=== PATIENT | male | born 1985 | race Caucasian/White ===

== ENCOUNTER 2022-03-02 17:01 | Inpatient (IN) | payer OTHER, SELFPAY ==
--- NOTE | ~2022-03-02 | CT_ITS ---
EXAMINATION: CT ABDOMEN AND PELVIS WITHOUT CONTRAST CLINICAL INFORMATION: Abdominal pain. Leukocytosis. COMPARISON: None TECHNIQUE: Multidetector volumetric imaging was performed from the superior aspect of the liver through the pubic symphysis. Sagittal and coronal reformatted images were obtained on the technologist's workstation. This CT examination was performed using dose optimization techniques as appropriate, variously including the following: *Automated exposure control *Adjustment of mA and/or kV according to patient size (this includes techniques or standardized protocols for targeted exams where dose is matched to indication/reason for exam; i.e. extremities or head) *Use of iterative reconstruction technique DLP: 737 mGy-cm FINDINGS: LUNG BASES: The visualized lung bases are unremarkable. LIVER, GALLBLADDER, AND BILIARY TREE: The liver is normal in size, shape, and attenuation. No focal hepatic lesion or biliary ductal dilatation is present. The gallbladder is unremarkable with no evidence of radiopaque gallstones, gallbladder wall thickening, or obvious pericholecystic inflammatory changes. PANCREAS: Unremarkable. SPLEEN: Unremarkable. ADRENAL GLANDS: Unremarkable. KIDNEYS AND URETERS: The kidneys are normal in size, shape, and attenuation. No hydronephrosis, hydroureter, or calculi seen. No perinephric stranding. BLADDER: Unremarkable. GASTROINTESTINAL TRACT: There is numerous diverticula throughout the colon. There is segment of bowel wall thickening and surrounding edema involving the proximal to mid sigmoid colon consistent with diverticulitis. Small volume of extraluminal air mesentery in this area consistent with localized perforation. ABDOMINAL WALL: No significant hernia is appreciated. LYMPH NODES: Normal. VASCULAR: Unremarkable. PELVIC VISCERA: Unremarkable. OSSEOUS STRUCTURES: Unremarkable. CT/CT abdomen pelvis wo IV con IMPRESSION: Diverticulitis of the sigmoid colon. Localized perforation. Fleischner guidelines were followed. This critical result was discussed with Dr Jackman on 03/02/2022, 10:40 PM and it was ascertained that the content and urgency of the report was understood at the time of direct communication.
[2022-03-02 17:57] VITALS: BP 135/92; PULSE 112; RESP 14; TEMP 36.6; O2SAT 96; BMI 30.4
[2022-03-02 18:19] LABS: MANUAL DIFF FLAG NO
[2022-03-02 18:21] LABS: Basophils Percent Auto 0.3 % (0-2); Hemoglobin 15.6 g/dl (14.0-18.0); Imm Gran Pct Auto 0.4 % (0.0-0.4); Mean Corpuscular HGB Conc 34.7 g/dl (31.0-36.0); Mean Corpuscular Hemoglobin 30.5 pg (27.0-33.0); Mean Corpuscular Volume 88.1 fL (80.0-98.0); PLT CLUMP 1; Red Blood Count 5.11 X10*6/uL (4.60-5.80); Red Cell Distribution Width 11.9 % (11.0-16.0); SCAN SMEAR FLAG 1; WBC ABN SCTR 1
[2022-03-02 18:23] LABS: Basophils Absolute Auto 0.1 X10*3/uL (0.0-0.2); Imm Gran Abs Auto 0.08 X10*3/uL (0.00-0.03); Lymphocytes Absolute Auto 1.3 X10*3/uL (1.2-4.9); Lymphocytes Percent Auto 6.2 % (20-40); Mean Platelet Volume 11.1 fL (9.4-12.4); Monocytes Absolute Auto 1.2 X10*3/uL (0.1-1.2); Monocytes Percent Auto 5.8 % (2-11); Neutrophils Absolute Auto 17.5 x10*3/uL (2.0-8.3); Neutrophils Percent Auto 87.3 % (45-73)
[2022-03-02 18:33] LABS: Anion Gap 18 (12-20); Blood Urea Nitrogen 7 mg/dL (9-16); Calcium 9.4 mg/dL (8.4-10.2); Carbon Dioxide 22 mmol/L (22-29); Chloride 100 mmol/L (96-108); Creatinine Clr Calc Pharmacy 109.5; Estimated Glomerular Filt Rate > 60; Glucose Random 129 mg/dL (60-115); Potassium 4.2 mmol/L (3.3-5.1); Sodium 136 mmol/L (135-145)
[2022-03-02 18:34] LABS: COVID-19 Test Negative (Negative); IDNOW Serial# 16C4AD1C
[2022-03-02 18:40] LABS: WBC ABN SCTR FOR CBC 1
[2022-03-02 18:41] LABS: Platelet Count 130 X10*3/uL (160-400); White Blood Count 20.1 X10*3/uL (4.8-10.8)
[2022-03-02 18:42] LABS: Appearance Urine Clear; Color Urine Yellow; Glucose Urine UA Negative (Negative); Leukocyte Esterase Urine Negative (Negative); Nitrite Urine Negative (Negative); Urine Blood Negative (Negative); Urine Ketones Negative (Negative); Urine Protein Negative (Neg-Trace)
[2022-03-02 22:06] LABS: Lipase 17 U/L (8-78)
--- NOTE | 2022-03-02 22:49 | ED_ITS ---
HPI - Abdominal Pain General Chief Complaint: Abdominal Pain Stated Complaint: lower abd pain Time Seen by Provider: 03/02/22 22:15 Source: patient Mode of arrival: ambulatory History of Present Illness HPI narrative: 36-year-old male without significant past medical history presents with lower abdominal pressure and pain that started yesterday at about noon and has not been associated with any nausea or vomiting but patient states he has had some difficulty with defecation and has had some fevers and chills but denies any urinary symptoms. Related Data Home Medications Medication Instructions Recorded Confirmed coenzyme Q10 75 mg capsule (Ultra 75 mg PO DAILY 03/02/22 CoQ10) omega 1-pcc-rpe-fish oil 100 cap PO 03/02/22 mg-160 mg-1,000 mg capsule (Fish Oil) Allergies Allergy/AdvReac Type Severity Reaction Status Date / Time No Known Allergies Allergy Verified 03/02/22 15:51 Review of Systems Review of Systems Pertinent positives and negatives as stated in HPI. And 10 point review of systems is otherwise negative. PMFSH Past Medical History Source: nursing notes reviewed Social History Social History Advance Directives: No Physical Exam ED Vital Signs: Vital Signs - 24 hr 03/02/22 17:57 Temperature 98 F Pulse Rate 112 H Respiratory Rate 14 Blood Pressure 135/92 H Pulse Oximetry 96 Oxygen Delivery Method Room Air BMI result Body Mass Index 30.4 VITAL SIGNS: Reviewed. GENERAL: Well developed, well nourished, in no acute distress. HEAD: Normocephalic/atraumatic EYES: PERRLA, EOMI EARS: Ext canals without abnormality OROPHARYNX: no oral lesions noted, posterior pharynx clear LUNGS: Normal breath sounds. No adventitious sounds or accessory muscle use. SpO2<96> CARDIOVASCULAR: Regular rate and rhythm without noted murmurs ABDOMEN: Soft, non-tender, non-distended with bowel sounds. MUSCULOSKELETAL: No tenderness, deformities, or effusions noted on gross inspection. EXTREMITIES: No cyanosis, clubbing or edema. SKIN: Inspection of the skin reveals no rashes NEUROLOGIC: Alert and oriented x 4. Strength and sensation to light touch were grossly intact x 4. Course Course Course Narrative: 2214: 36-year-old male with history and clinical presentation after review of investigations consistent with acute diverticulitis with micro perforation and sepsis. Patient receiving antibiotics and IV fluids as well as pain medication. Discussed the case with the surgeon who accepts admission. Reevaluation(s) Reevaluation #1: [facility] called to inform that patient has diverticulitis with microperforation and no noted abscess or air within abdomen. Time: 22:47 MDM - Abdominal Pain Lab Data Result diagrams: 03/02/22 18:13 03/02/22 18:13 Labs: Lab Results 03/02/22 03/02/22 03/02/22 Range/Units 18:13 18:13 18:13 WBC 20.1 H (4.8-10.8) X10*3/uL RBC 5.11 (4.60-5.80) X10*6/uL Hgb 15.6 (14.0-18.0) g/dl Hct 45.0 (42.0-52.0) % MCV 88.1 (80.0-98.0) fL MCH 30.5 (27.0-33.0) pg MCHC 34.7 (31.0-36.0) g/dl RDW 11.9 (11.0-16.0) % Plt Count 130 L (160-400) X10*3/uL MPV 11.1 (9.4-12.4) fL Immature Gran % (Auto) 0.4 (0.0-0.4) % Neut % (Auto) 87.3 H (45-73) % Lymph % (Auto) 6.2 L (20-40) % [place] % (Auto) 5.8 (2-11) % Eos % (Auto) 0.0 (0-4) % Baso % (Auto) 0.3 (0-2) % Lymph # (Auto) 1.3 (1.2-4.9) X10*3/uL [place] # (Auto) 1.2 (0.1-1.2) X10*3/uL Eos # (Auto) 0.0 (0.0-0.4) X10*3/uL Baso # (Auto) 0.1 (0.0-0.2) X10*3/uL Abs Immat Gran (auto) 0.08 H (0.00-0.03) X10*3/uL Absolute Neuts (auto) 17.5 H (2.0-8.3) x10*3/uL Absolute Nucleated RBC 0.000 (0.0-0.012) X10*3/uL Nucleated RBC % (auto) 0.0 (0.0-0.2) /100WBC Sodium 136 (135-145) mmol/L Potassium 4.2 (3.3-5.1) mmol/L Chloride 100 (96-108) mmol/L Carbon Dioxide 22 (22-29) mmol/L Anion Gap 18 (12-20) BUN 7 L (9-16) mg/dL Creatinine 1.02 (0.5-1.4) mg/dL Estim Creat Clear Calc 109.5 Estimated GFR > 60 Random Glucose 129 H (60-115) mg/dL Calcium 9.4 (8.4-10.2) mg/dL Lipase 17 (8-78) U/L Urine Color Urine Appearance Urine pH (5.0-9.0) Ur Specific [place] (1.005-1.025) Urine Protein (Neg-Trace) mg/dL Urine Glucose (UA) (Negative) mg/dL Urine Ketones (Negative) mg/dL Urine Blood (Negative) Urine Nitrite (Negative) Ur Leukocyte Esterase (Negative) COVID-19 ([facility]) Negative (Negative) COVID-19 Clin Com See Note 03/02/22 Range/Units 18:13 WBC (4.8-10.8) X10*3/uL RBC (4.60-5.80) X10*6/uL Hgb (14.0-18.0) g/dl Hct (42.0-52.0) % MCV (80.0-98.0) fL MCH (27.0-33.0) pg MCHC (31.0-36.0) g/dl RDW (11.0-16.0) % Plt Count (160-400) X10*3/uL MPV (9.4-12.4) fL Immature Gran % (Auto) (0.0-0.4) % Neut % (Auto) (45-73) % Lymph % (Auto) (20-40) % [place] % (Auto) (2-11) % Eos % (Auto) (0-4) % Baso % (Auto) (0-2) % Lymph # (Auto) (1.2-4.9) X10*3/uL [place] # (Auto) (0.1-1.2) X10*3/uL Eos # (Auto) (0.0-0.4) X10*3/uL Baso # (Auto) (0.0-0.2) X10*3/uL Abs Immat Gran (auto) (0.00-0.03) X10*3/uL Absolute Neuts (auto) (2.0-8.3) x10*3/uL Absolute Nucleated RBC (0.0-0.012) X10*3/uL Nucleated RBC % (auto) (0.0-0.2) /100WBC Sodium (135-145) mmol/L Potassium (3.3-5.1) mmol/L Chloride (96-108) mmol/L Carbon Dioxide (22-29) mmol/L Anion Gap (12-20) BUN (9-16) mg/dL Creatinine (0.5-1.4) mg/dL Estim Creat Clear Calc Estimated GFR Random Glucose (60-115) mg/dL Calcium (8.4-10.2) mg/dL Lipase (8-78) U/L Urine Color Yellow Urine Appearance Clear Urine pH 6.0 (5.0-9.0) Ur Specific [place] 1.010 (1.005-1.025) Urine Protein Negative (Neg-Trace) mg/dL Urine Glucose (UA) Negative (Negative) mg/dL Urine Ketones Negative (Negative) mg/dL Urine Blood Negative (Negative) Urine Nitrite Negative (Negative) Ur Leukocyte Esterase Negative (Negative) COVID-19 ([facility]) (Negative) COVID-19 Clin Com Critical Care Time Critical Care Time Critical Care Time: Yes Total Critical Care Time: 30 Attestation: I personally attest to this time spent taking care of the patient. Discharge Plan Discharge Clinical Impression: Sepsis, Diverticulitis Patient Disposition: Admitted As Inpatient
[2022-03-02] MEDS: 0.9 % Sodium Chloride 1,000 ML 999 ML IV (23:15)
[2022-03-02] MEDS: Piperacillin Sodium/Tazobactam 3.375 GM in 0.9 % Sodium Chloride 50 ML IV (23:15)
[2022-03-02 23:22] LABS: Lactic Acid 1.1 mmol/L (0.5-2.0)
[2022-03-02] MEDS: HYDROmorphone HCl 0.5 MG/0.5 ML SYRINGE IVPUSH (23:24)
[2022-03-02 23:30] VITALS: BP 114/71; PULSE 102; RESP 14; TEMP 37.8; O2SAT 95
[2022-03-02] MEDS: Acetaminophen 325 MG TABLET 975 MG PO (23:43)
[2022-03-03] VITALS (9 sets, daily range): BP systolic 105–130; BP diastolic 70–82; PULSE 90–98; RESP 16–20; TEMP 36.6–38.2; O2SAT 95–99
[2022-03-03] MEDS: 0.9 % Sodium Chloride 1,000 ML 125 ML IVCONT ×3 (00:32→16:54)
[2022-03-03 06:30] LABS: MANUAL DIFF FLAG NO
[2022-03-03 06:32] LABS: Basophils Absolute Auto 0.1 X10*3/uL (0.0-0.2); Basophils Percent Auto 0.3 % (0-2); Eosinophils Absolute Auto 0.1 X10*3/uL (0.0-0.4); Eosinophils Percent Auto 0.4 % (0-4); Hematocrit 40.1 % (42.0-52.0); Hemoglobin 13.7 g/dl (14.0-18.0); Imm Gran Abs Auto 0.09 X10*3/uL (0.00-0.03); Imm Gran Pct Auto 0.5 % (0.0-0.4); Lymphocytes Absolute Auto 1.9 X10*3/uL (1.2-4.9); Lymphocytes Percent Auto 11.6 % (20-40); Mean Corpuscular HGB Conc 34.2 g/dl (31.0-36.0); Mean Corpuscular Hemoglobin 31.1 pg (27.0-33.0); Mean Corpuscular Volume 90.9 fL (80.0-98.0); Mean Platelet Volume 10.5 fL (9.4-12.4); Monocytes Absolute Auto 1.1 X10*3/uL (0.1-1.2); Monocytes Percent Auto 6.8 % (2-11); Neutrophils Absolute Auto 13.2 x10*3/uL (2.0-8.3); Neutrophils Percent Auto 80.4 % (45-73); Platelet Count 184 X10*3/uL (160-400); Red Blood Count 4.41 X10*6/uL (4.60-5.80); Red Cell Distribution Width 12.1 % (11.0-16.0); White Blood Count 16.4 X10*3/uL (4.8-10.8)
[2022-03-03] MEDS: Piperacillin Sodium/Tazobactam 3.375 GM in 0.9 % Sodium Chloride 50 ML IV ×3 (06:32→22:35)
[2022-03-03] MEDS: HYDROmorphone HCl 1 MG/ML SYRINGE 0.5 MG IVPUSH ×2 (06:33→17:49)
[2022-03-03 06:49] LABS: Anion Gap 16 (12-20); Blood Urea Nitrogen 7 mg/dL (9-16); Calcium 8.4 mg/dL (8.4-10.2); Carbon Dioxide 25 mmol/L (22-29); Chloride 102 mmol/L (96-108); Creatinine Clr Calc Pharmacy 132.9; Estimated Glomerular Filt Rate > 60; Glucose Fasting 111 mg/dL (60-99); Potassium 4.6 mmol/L (3.3-5.1); Sodium 138 mmol/L (135-145)
--- NOTE | 2022-03-03 07:58 | PHA.MEDREC ---
Pharmacy Consult ? Medication Reconciliation Pharmacy has completed the medication reconciliation.Spoke to patient and confirmed dosing on otc meds. No prescription medications taken at home.
--- NOTE | 2022-03-03 08:22 | P.HPGS_ITS ---
History of Present Illness History of Present Illness Date of Service: 03/03/22 Chief complaint: diverticulitis Narrative: Salomon Gunderson is a 36 year old male Presenting with complaints of abdominal pain in the lower abdomen. The pain began 2 days ago suddenly as a dull ache in the lower abdomen. The pain is persisted in this location and comes in waves, 6/10 at its peak. He reports fever and chills but denies nausea, vomiting . He does have constipation which began Wednesday. This is unusual for him. Denies a previous history of similar symptoms. Workup in the emergency department revealed an elevated WBC. CT abdomen and pelvis reveals an area of diverticulitis involving the sigmoid colon with collection of air within the mesentery. Findings are considered just of of a perforated sigmoid diverticulitis. He has never undergone colonoscopy. Review of Systems Review of Systems: Yes all other systems are reviewed and are negative Constitutional: Constitutional: Reports chills and Reports fever(s) Gastrointestinal: Gastrointestinal: Reports abdominal pain, Reports constipation and Reports GI cramping PMFSH Social History Social History Patient Tobacco Use Status: Never used Tobacco Use of substances other than those prescribed or required for medical reasons: No Advance Directives: No Meds Allergies Allergy/AdvReac Type Severity Reaction Status Date / Time No Known Allergies Allergy Verified 03/02/22 15:51 Active Medications: Current Medications Famotidine (Famotidine/Pf 20 Mg/2 Ml Vial) 20 mg IVPUSH BID MEGHANN Hydromorphone HCl (Hydromorphone Hcl 1 Mg/Ml Syringe) 0.5 mg IVPUSH Q4H PRN; Protocol PRN Reason: Pain, Moderate (Pain Scale 4-6 Last Admin: 03/03/22 06:33 Dose: 0.5 mg Sodium Chloride (Ns) 1,000 mls @ 125 mls/hr IVCONT .Q8H [facility] Last Admin: 03/03/22 00:32 Dose: 125 mls/hr Piperacillin Sod/Tazobactam (Sod 3.375 gm/ Sodium Chloride) 50 mls @ 100 mls/hr IV Q8H [facility] Last Infusion: 03/03/22 07:32 Dose: Infused Home Medications Medication Instructions Recorded Confirmed Last Taken Type coenzyme Q10 75 mg capsule (Ultra 75 mg PO DAILY 03/02/22 03/03/22 03/03/22 History CoQ10) omega 6-dle-fnu-fish oil 100 1 cap PO DAILY 03/02/22 03/03/22 03/01/22 History mg-160 mg-1,000 mg capsule (Fish Oil) Physical Exam Vital Signs: Vital Signs: Last Vital Signs Temp 99.6 F 03/03/22 07:30 Pulse 98 03/03/22 07:30 Resp 20 03/03/22 07:30 BP 130/78 03/03/22 07:30 Pulse Ox 99 03/03/22 07:30 O2 Del Method 03/03/22 07:30 BMI result Body Mass Index 30.4 Const: General: cooperative and no acute distress Nutritional Appearance: well nourished Orientation/consciousness: patient oriented x3 Limitations: no limitations HEENT: Head: Yes normocephalic and Yes atraumatic Ears: hearing grossly normal bilaterally Resp: Effort & Inspection: normal respiratory effort, no audible wheezes, no cough and no respiratory distress Cardio: Jugular venous distension: no JVD GI: Inspection: Yes normal to inspection Palpation (GI): Soft to palpation, Tenderness to palpation present (GI) in the LLQ and in the RLQ; with no rebound tenderness, no guarding and not rigid Percussion: Yes normal to percussion Auscultation: normal bowel sounds Rectal Exam - Male: Yes deferred Skin: Other: Warm, dry, no rash Neuro: General: patient oriented x3 Extrem: General: Yes no clubbing, cyanosis or edema Results Results Labs: Short CBC 03/02/22 03/03/22 Range/Units 18:13 06:02 WBC 20.1 H 16.4 H (4.8-10.8) X10*3/uL Hgb 15.6 13.7 L (14.0-18.0) g/dl Hct 45.0 40.1 L (42.0-52.0) % Plt Count 130 L 184 D (160-400) X10*3/uL BMP 03/02/22 03/03/22 18:13 06:02 Sodium 136 138 Potassium 4.2 4.6 Chloride 100 102 Carbon Dioxide 22 25 BUN 7 L 7 L Creatinine 1.02 0.84 Calcium 9.4 8.4 D Urine 10/24/22 Range/Units 18:13 Urine Color Yellow Urine Appearance Clear Urine pH 6.0 (5.0-9.0) Ur Specific [place] 1.010 (1.005-1.025) Urine Protein Negative (Neg-Trace) mg/dL Urine Glucose (UA) Negative (Negative) mg/dL Assessment and Plan (1) Abdominal pain: Status: Acute (2) Diverticulitis: Status: Acute (3) Sepsis: Status: Acute Plan 36-year-old male patient with a complained of abdominal pain in the lower abdomen of 2 days duration. Patient was found to have elevated WBC and evidence of sigmoid diverticulitis with a perforation and contained collection of air without abscess. Examination reveals some mild tenderness in the right lower quadrant and left lower quadrant without rebound, guarding or rigidity. Recommend continuing IV antibiotics and bowel rest. Will recheck CBC in a.m. will advance diet if CBC and abdominal pain improved. Patient will need col onoscopy once the current episode resolves. Patient expressed understanding and agrees with the plan. Quality Stroke Does the patient have a stroke diagnosis?: No VTE Prior VTE?: No VTE Risk Level:: Surgical - moderate VTE Device Contraindication: N/A - Device Ordered VTE Drug Contraindication: N/A - Med Ordered Procedures Date of Service Date of Service: 03/03/22
[2022-03-03] MEDS: Famotidine/PF 20 MG/2 ML VIAL IVPUSH ×2 (08:37→22:34)
[2022-03-03] MEDS: oxyCODONE HCl Immed Release 5 MG TABLET PO ×2 (10:49→22:34)
--- NOTE | 2022-03-03 16:42 | PC.NURSE ---
assumed care of pt, pt reporting feeling febrile, tech to obtain vitals.
[2022-03-03] MEDS: Acetaminophen 325 MG TABLET 650 MG PO (16:57)
--- NOTE | 2022-03-03 16:59 | PC.NURSE ---
pt a&ox3, vss, low fever, medicated per provider order, NS started at 125ml/hr. pt reporting 4/10 pain. pt inquiring about NPO status, provider notified.
--- NOTE | 2022-03-03 17:51 | PC.NURSE ---
pt medicated w PRN Dilaudid, reporting 4/10 abd pain.
--- NOTE | 2022-03-03 18:30 | PC.NURSE ---
pt requesting ice chips, pt to remain NPO until 03/04 per provider.
--- NOTE | 2022-03-03 20:30 | PC.NURSE ---
attempted to call in report to S3, nurse to call back.
--- NOTE | 2022-03-03 21:22 | PC.NURSE ---
RN-RN report given to S3.
[2022-03-03] MEDS: Zolpidem Tartrate 5 MG TABLET PO (22:34)
[2022-03-04] VITALS: BP 118/67; PULSE 105; RESP 18; TEMP 37.2; O2SAT 97
[2022-03-04] MEDS: 0.9 % Sodium Chloride 1,000 ML 125 ML IVCONT ×2 (01:07→11:09)
[2022-03-04 03:05] VITALS: BP 115/61; PULSE 92; RESP 16; TEMP 37.3; O2SAT 97
[2022-03-04] MEDS: oxyCODONE HCl Immed Release 5 MG TABLET PO ×2 (05:48→22:08)
[2022-03-04] MEDS: Piperacillin Sodium/Tazobactam 3.375 GM in 0.9 % Sodium Chloride 50 ML IV ×3 (05:49→22:04)
[2022-03-04 05:58] LABS: MANUAL DIFF FLAG NO
[2022-03-04 06:05] LABS: Basophils Percent Auto 0.3 % (0-2); Eosinophils Absolute Auto 0.1 X10*3/uL (0.0-0.4); Hematocrit 37.2 % (42.0-52.0); Hemoglobin 12.5 g/dl (14.0-18.0); Imm Gran Abs Auto 0.07 X10*3/uL (0.00-0.03); Imm Gran Pct Auto 0.5 % (0.0-0.4); Lymphocytes Absolute Auto 1.3 X10*3/uL (1.2-4.9); Lymphocytes Percent Auto 9.6 % (20-40); Mean Corpuscular HGB Conc 33.6 g/dl (31.0-36.0); Mean Corpuscular Volume 89.4 fL (80.0-98.0); Mean Platelet Volume 10.4 fL (9.4-12.4); Monocytes Absolute Auto 0.9 X10*3/uL (0.1-1.2); Monocytes Percent Auto 6.7 % (2-11); Neutrophils Percent Auto 81.9 % (45-73); Platelet Count 175 X10*3/uL (160-400); Red Blood Count 4.16 X10*6/uL (4.60-5.80); Red Cell Distribution Width 11.9 % (11.0-16.0); White Blood Count 13.5 X10*3/uL (4.8-10.8)
--- NOTE | 2022-03-04 07:21 | MHC.CM.PN ---
PATIENT CURRENTLY ASLEEP. CASE MANAGEMENT NAME AND ANTICIAPTED PLAN WRITTEN ON WHITE BOARD. CASE MANAGEMENT TO RETURN. PER REVIEW OF NOTES, PATIENT APPEARS TO BE INDEPENDENT WITH ADLS. NO SERVICES ANTICIPATED. CASE MANAGEMENT TO RETURN
[2022-03-04 08:00] VITALS: BP 107/59; PULSE 93; RESP 18; TEMP 37.1; O2SAT 96
--- NOTE | 2022-03-04 08:28 | MHC.CM.PN ---
PATIENT IS FULLY INDEPENDENT. CAR IS IN LOT. COVID VAX X 2 ([employer] AND [employer]ER) NO DME OR SERVICES IN HOME. PLAN IS HOME - SELF CARE AT TIME OF DC. IS HCP AND A COPY IS REQUESTED TO BE BROUGHT IN
--- NOTE | 2022-03-04 10:01 | P.PNGS_ITS ---
Subjective Subjective Date of Service: 03/04/22 <Mary Anne Jacobsen PA-C - Last Filed: 03/04/22 10:07> 03/04/22 <Quinton Silva MD - Last Filed: 03/04/22 13:19> Interval history: Feels much better overall. Still has some pain with movement but significantly improved. Hungry and wants to eat. Passing flatus, no BM yet. <Mary Anne Jacobsen PA-C - Last Filed: 03/04/22 10:07> Physical Exam Vital Signs: Vital Signs: Last Vital Signs Temp 98.8 F 03/04/22 08:00 Pulse 93 03/04/22 08:00 Resp 18 03/04/22 08:00 BP 107/59 L 03/04/22 08:00 Pulse Ox 96 03/04/22 08:00 O2 Del Method 03/04/22 08:00 BMI result Body Mass Index 30.4 <Mary Anne Jacobsen PA-C - Last Filed: 03/04/22 10:07> Const: General: comfortable, no acute distress and alert <Mary Anne harrison PA-C - Last Filed: 03/04/22 10:07> Orientation/consciousness: patient oriented x3 <GIANFRANCO Max Last Filed: 03/04/22 10:07> Resp: Effort & Inspection: normal respiratory effort <Mary Anne Jacobsen PA-C - Last Filed: 03/04/22 10:07> GI: Inspection: No distended <Mary Anne Jacobsen PA-C - Last Filed: 03/04/22 10:07> Palpation (GI): Soft to palpation, Tenderness to palpation present (GI) in the LLQ (pinpoint tenderness and rebound), no guarding and not rigid <GIANFRANCO Max Last Filed: 03/04/22 10:07> Percussion: Yes normal to percussion <GIANFRANCO Max Last Filed: 03/04/22 10:07> Skin: General skin exam: no rashes or lesions noted <GIANFRANCO Max Last Filed: 03/04/22 10:07> Neuro: General: patient oriented x3 <Mary Anne Jacobsen PA-C - Last Filed: 03/04/22 10:07> Extrem: General: Yes no clubbing, cyanosis or edema <Mary Anne Jacobsen PA-C - Last Filed: 03/04/22 10:07> Objective Data Active Medications Acetaminophen (Acetaminophen 325 Mg Tablet) 650 mg PO QID PRN PRN Reason: headache, temp > 101 Last Admin: 03/03/22 16:57 Dose: 650 mg Documented By: MICHEL Famotidine (Famotidine/Pf 20 Mg/2 Ml Vial) 20 mg IVPUSH BID [facility] Last Admin: 03/03/22 22:34 Dose: 20 mg Documented By: SAPNA Hydromorphone HCl (Hydromorphone Hcl 1 Mg/Ml Syringe) 0.5 mg IVPUSH Q4H PRN; Protocol PRN Reason: Pain, Moderate (Pain Scale 4-6 Last Admin: 03/03/22 17:49 Dose: 0.5 mg Documented By: MICHEL Sodium Chloride (Ns) 1,000 mls @ 60 mls/hr IVCONT .[id number] [facility] Last Admin: 03/04/22 01:07 Dose: 125 mls/hr Documented By: SAPNA Piperacillin Sod/Tazobactam (Sod 3.375 gm/ Sodium Chloride) 50 mls @ 100 mls/hr IV Q8H [facility] Last Infusion: 03/04/22 06:33 Dose: 100 mls/hr Documented By: ÁNGELA Ondansetron HCl (Ondansetron Hcl 4 Mg/2 Ml Vial) 4 mg IVPUSH QID PRN PRN Reason: Nausea Oxycodone HCl (Oxycodone Hcl Immed Release 5 Mg Tablet) 5 mg PO Q4H PRN PRN Reason: Pain, Moderate (Pain Scale 4-6 Last Admin: 03/04/22 05:48 Dose: 5 mg Documented By: ÁNGELA Zolpidem Tartrate (Zolpidem Tartrate 5 Mg Tablet) 5 mg PO BEDTIME PRN PRN Reason: Insomnia Last Admin: 03/03/22 22:34 Dose: 5 mg Documented By: SAPNA <GIANFRANCO Max Last Filed: 03/04/22 10:07> Labs CBC & Chem 7: : 03/04/22 05:17 03/03/22 06:02 <Mary Anne Jacobsen PA-C - Last Filed: 03/04/22 10:07> Labs: Laboratory Results - last 24 hr 03/04/22 05:17 MCV 89.4 MCH 30.0 MCHC 33.6 RDW 11.9 Plt Count 175 MPV 10.4 Immature Gran % (Auto) 0.5 H Neut % (Auto) 81.9 H Lymph % (Auto) 9.6 L [place] % (Auto) 6.7 Eos % (Auto) 1.0 Baso % (Auto) 0.3 Lymph # (Auto) 1.3 [place] # (Auto) 0.9 Eos # (Auto) 0.1 Baso # (Auto) 0.0 Abs Immat Gran (auto) 0.07 H Absolute Neuts (auto) 11.0 H Absolute Nucleated RBC 0.000 Nucleated RBC % (auto) 0.0 <Mary Anne Jacobsen PA-C - Last Filed: 03/04/22 10:07> Microbiology Microbiology Results: Microbiology 03/02/22 23:14 Blood Culture - Preliminary Blood - Venous No growth after 24 hours. 03/02/22 23:05 Blood Culture - Preliminary Blood - Venous No growth after 24 hours. <Mary Anne Jacobsen PA-C - Last Filed: 03/04/22 10:07> Procedures Date of Service Date of Service: 03/04/22 <Mary Anne Jacobsen PA-C - Last Filed: 03/04/22 10:07> Progress Note: A&P Assessment and plan (1) Diverticulitis: Status: Acute <Mary Anne Jacobsen PA-C - Last Filed: 03/04/22 10:07> (2) Sepsis: Status: Acute <GIANFRANCO Max Last Filed: 03/04/22 10:07> Assessment and Plan: 36 year old male admitted with sepsis, perforated diverticulitis being managed conservatively with IV abx and bowel rest. He is improved symptomatically today and WBC has decreased. Abd remains very benign. Will advance to clear liquids and then further as tolerated. Cont IV zosyn. Likely home in the next 1-2 days on PO abx if continues to improve and solid diet is tolerated. <Mary Anne Jacobsen PA-C - Last Filed: 03/04/22 10:07> 36 year old male admitted with sepsis, perforated diverticulitis being ma naged conservatively with IV abx and bowel rest. He is improved symptomatically today and WBC has decreased. Abd remains very benign. Will advance to clear liquids and then further as tolerated. Cont IV zosyn. Likely home in the next 1-2 days on PO abx if continues to improve and solid diet is tolerated. Patient feels much improved with decreased abdominal pain, felt mainly in the lower abdomen. He is passing flatus but denies any bowel movement. Abdomen is soft and nontender, nondistended no rebound or guarding. WBC improved today. Agree with the above assessment and plan. Continue IV antibiotics slowly advance diet as tolerated. Transition to oral antibiotics once diet is tolera iftikhar. <Quinton Silav MD - Last Filed: 03/04/22 13:19> Time Spent With Patient Time: Total time spent is greater than 50% in coordination of care (as documented) at patient's floor/unit and/or counseling patient: <Mary Anne Jacobsen PA-C - Last Filed: 03/04/22 10:07> Quality Stroke Does the patient have a stroke diagnosis?: No <Mary Anne Jacobsen PA-C - Last Filed: 03/04/22 10:07> VTE Prior VTE?: No <Mary Anne Jacobsen PA-C - Last Filed: 03/04/22 10:07> VTE Risk Level:: Surgical - moderate <Mary Anne Jacobsen PA-C - Last Filed: 03/04/22 10:07> VTE Device Contraindication: N/A - Device Ordered <Mary Anne Jacobsen PA-C - Last Filed: 03/04/22 10:07> VTE Drug Contraindication: N/A - Med Ordered <Mary Anne Jacobsen PA-C - Last Filed: 03/04/22 10:07>
[2022-03-04] MEDS: Famotidine/PF 20 MG/2 ML VIAL IVPUSH ×2 (11:09→22:04)
[2022-03-04 12:00] VITALS: BP 123/75; PULSE 93; RESP 18; TEMP 36.8; O2SAT 96
[2022-03-04] MEDS: Acetaminophen 325 MG TABLET 650 MG PO (13:20)
[2022-03-04 16:00] VITALS: BP 126/71; PULSE 96; RESP 18; TEMP 36.9; O2SAT 97
[2022-03-04 19:35] VITALS: BP 132/85; PULSE 89; RESP 18; TEMP 36.9; O2SAT 97
[2022-03-04] MEDS: Zolpidem Tartrate 5 MG TABLET PO (22:08)
[2022-03-05] VITALS: BP 123/66; PULSE 83; RESP 18; TEMP 36.6; O2SAT 97
[2022-03-05 03:17] VITALS: BP 120/72; PULSE 80; RESP 18; TEMP 37.2; O2SAT 97
[2022-03-05] MEDS: Piperacillin Sodium/Tazobactam 3.375 GM in 0.9 % Sodium Chloride 50 ML IV (06:23)
[2022-03-05] MEDS: 0.9 % Sodium Chloride 1,000 ML 125 ML IVCONT (06:23)
[2022-03-05] MEDS: Acetaminophen 325 MG TABLET 650 MG PO (06:44)
[2022-03-05 07:57] VITALS: BP 129/84; PULSE 78; RESP 16; TEMP 36.4; O2SAT 96
--- NOTE | 2022-03-05 08:09 | PM.PNGS ---
Subjective Subjective Date of Service: 03/05/22 <Mary Anne Jacobsen PA-C - Last Filed: 03/05/22 08:13> 03/05/22 <Quinton Silva MD - Last Filed: 03/05/22 09:13> Interval history: Feels much better this morning. Pain improved. Tolerating clear liquids without NV, worsening abd pain. Passing continuous flatus but no BM yet. <Mary Anne Jacobsen PA-C - Last Filed: 03/05/22 08:13> Physical Exam Vital Signs: Vital Signs: Last Vital Signs Temp 97.6 F 03/05/22 07:57 Pulse 78 03/05/22 07:57 Resp 16 03/05/22 07:57 BP 129/84 03/05/22 07:57 Pulse Ox 96 03/05/22 07:57 O2 Del Method 03/05/22 07:57 BMI result Body Mass Index 30.4 <Mary Anne Jacobsen PA-C - Last Filed: 03/05/22 08:13> Const: General: comfortable, no acute distress and alert <Mary Anne Jacobsen PA-C - Last Filed: 03/05/22 08:13> Orientation/consciousness: patient oriented x3 <GIANFRANCO Max Last Filed: 03/05/22 08:13> Resp: Effort & Inspection: normal respiratory effort <Mary Anne Jacobsen PA-C - Last Filed: 03/05/22 08:13> GI: Inspection: No distended <Mary Anne Jacobsen PA-C - Last Filed: 03/05/22 08:13> Palpation (GI): Soft to palpation, Tenderness to palpation present (GI) in the LLQ (mild, pinpoint), no guarding and not rigid <Mary Anne Jacobsen PA-C - Last Filed: 03/05/22 08:13> Percussion: Yes normal to percussion <GIANFRANCO Max Last Filed: 03/05/22 08:13> Skin: General skin exam: no rashes or lesions noted <GIANFRANCO Max Last Filed: 03/05/22 08:13> Neuro: General: patient oriented x3 <Mary Anne Jacobsen PA-C - Last Filed: 03/05/22 08:13> Extrem: General: Yes no clubbing, cyanosis or edema <Mary Anne Jacobsen PA-C - Last Filed: 03/05/22 08:13> Objective Data Active Medications Acetaminophen (Acetaminophen 325 Mg Tablet) 650 mg PO QID PRN PRN Reason: headache, temp > 101 Last Admin: 03/05/22 06:44 Dose: 650 mg Documented By: ROMARIO Famotidine (Famotidine/Pf 20 Mg/2 Ml Vial) 20 mg IVPUSH BID [facility] Last Admin: 03/04/22 22:04 Dose: 20 mg Documented By: ROMARIO Hydromorphone HCl (Hydromorphone Hcl 1 Mg/Ml Syringe) 0.5 mg IVPUSH Q4H PRN; Protocol PRN Reason: Pain, Moderate (Pain Scale 4-6 Last Admin: 03/03/22 17:49 Dose: 0.5 mg Documented By: MICHEL Sodium Chloride (Ns) 1,000 mls @ 60 mls/hr IVCONT .[id number] [facility] Last Admin: 03/05/22 06:23 Dose: 125 mls/hr Documented By: ROMARIO Piperacillin Sod/Tazobactam (Sod 3.375 gm/ Sodium Chloride) 50 mls @ 100 mls/hr IV Q8H [facility] Last Infusion: 03/05/22 07:09 Dose: 0 mls/hr Documented By: ROMARIO Ondansetron HCl (Ondansetron Hcl 4 Mg/2 Ml Vial) 4 mg IVPUSH QID PRN PRN Reason: Nausea Oxycodone HCl (Oxycodone Hcl Immed Release 5 Mg Tablet) 5 mg PO Q4H PRN PRN Reason: Pain, Moderate (Pain Scale 4-6 Last Admin: 03/04/22 22:08 Dose: 5 mg Documented By: ROMARIO Zolpidem Tartrate (Zolpidem Tartrate 5 Mg Tablet) 5 mg PO BEDTIME PRN PRN Reason: Insomnia Last Admin: 03/04/22 22:08 Dose: 5 mg Documented By: ROMARIO <Mary Anne Jacobsen PA-C - Last Filed: 03/05/22 08:13> Labs CBC & Chem 7: : 03/04/22 05:17 03/03/22 06:02 <Mary Anne Jacobsen PA-C - Last Filed: 03/05/22 08:13> Microbiology Microbiology Results: Microbiology 03/02/22 23:14 Blood Culture - Preliminary Blood - Venous No growth after 48 hours. 03/02/22 23:05 Blood Culture - Preliminary Blood - Venous No growth after 48 hours. <Mary Anne Jacobsen PA-C - Last Filed: 03/05/22 08:13> Procedures Date of Service Date of Service: 03/05/22 <GIANFRANCO Max Last Filed: 03/05/22 08:13> Progress Note: A&P Assessment and plan (1) Diverticulitis: Status: Acute <GIANFRANCO Max Last Filed: 03/05/22 08:13> Assessment and Plan: 36 year old male admitted with sepsis, perforated diverticulitis being managed conservatively with IV abx and bowel rest. He continues to improve symptomatically and is tolerating clear liquids. His abd is less tender on exam this morning. Will advance to low residue diet. Cont IV zosyn. Likely home later today if solid diet is tolerated and remains stable. <Mary Anne Jacobsen PA-C - Last Filed: 03/05/22 08:13> 36 year old male admitted with sepsis, perforated diverticulitis being managed conservatively with IV abx and bowel rest. He continues to improve symptomatically and is tolerating clear liquids. His abd is less tender on exam this morning. Will advance to low residue diet. Cont IV zosyn. Likely home later today if solid diet is tolerated and remains stable. patient feels much improved today and did tolerate the clear liquids. Abdominal exam is benign. Agree with advancing diet to regular low residue. Possible discharge home later today on oral antibiotics. <Quinton Silva MD - Last Filed: 03/05/22 09:13> Time Spent With Patient Time: Total time spent is greater than 50% in coordination of care (as documented) at patient's floor/unit and/or counseling patient: <Mary Anne Jacobsen PA-C - Last Filed: 03/05/22 08:13> Quality Stroke Does the patient have a stroke diagnosis?: No <Mary Anne Jacobsen PA-C - Last Filed: 03/05/22 08:13> VTE Prior VTE?: No <Mary Anne Jacobsen PA-C - Last Filed: 03/05/22 08:13> VTE Risk Level:: Surgical - moderate <Mary Anne Jacobsen PA-C - Last Filed: 03/05/22 08:13> VTE Device Contraindication: N/A - Device Ordered <Mary Anne Jacobsen PA-C - Last Filed: 03/05/22 08:13> VTE Drug Contraindication: N/A - Med Ordered <Mary Anne Jacobsen PA-C - Last Filed: 03/05/22 08:13>
[2022-03-05] MEDS: Famotidine/PF 20 MG/2 ML VIAL IVPUSH (09:34)
[2022-03-05] MEDS: Docusate Sodium 100 MG CAPSULE PO (09:35)
[2022-03-05 11:47] VITALS: BP 122/77; PULSE 90; RESP 17; TEMP 36.6; O2SAT 98
--- NOTE | 2022-03-05 12:45 | MHC.CM.PN ---
PATIENT IS DC - SELF CARE. RN AWARE OF PLAN
--- NOTE | 2022-03-05 12:47 | P.DS_ITS ---
DS: Providers Provider Date of Service: 03/05/22 Date of admission: 03/03/22 00:02 Date of discharge: 03/05/22 Primary care physician: Chiara Physician Attending physician on admission: Quinton Silva Attending physician on discharge: Quinton Silva DS: Diagnosis Discharge Diagnosis (1) Diverticulitis: Status: Acute DS: Summary Hospital Course Hospital Course: BRIEF HPI: Salomon Gunderson is a 36 year old male Presenting with complaints of abdominal pain in the lower abdomen. The pain began 2 days ago suddenly as a dull ache in the lower abdomen. The pain is persisted in this location and come s in waves, 10/17 at its peak. He reports fever and chills but denies nausea, vomiting. He does have constipation which began Wednesday. This is unusual for him. Denies a previous history of similar symptoms. He was febrile in the ED and workup in the emergency department revealed an elevated WBC. CT abdomen and pelvis reveals an area of diverticulitis involving the sigmoid colon with collection of air within the mesentery. Findings are considered just of of a perforated sigmoid diverticulitis. He has never undergone colonoscopy. HOSPITAL COURSE: Patient was admitted to the hospital for further treatment of the perforated diverticulitis. The patient was well appearing with a relatively benign exam without peritoneal signs and actually felt improved since arrival. His WBC count was downtrending. It was therefore recommended to continue nonoperative measures. Patient was continued on IV fluids and started on IV Zosyn, IV analgesics as needed and NPO for bowel rest. On HD #1, he felt improved symptomatically with less abdominal pain. He was passing flatus. He was febrile and his abdominal exam was improved with less tenderness. His WBC count continued to improve. He was therefore advanced to a clear liquid diet. The following day, he was tolerating the clear liquid diet well and felt better overall with less pain. He was advanced to a low residue diet. He was reassessed later in the day and was tolerating the solid diet without increasing abd pain, nausea or vomiting. He felt ready for discharge. He was discharged to home on 03/05/22 in stable condition. He completed a 3 day course of IV zosyn and was discharged home on a PO course of Augmentin BID for 10 days. He is to follow up with Dr. Silva in office in 1 week. He is to follow up with Dr. Dewey to schedule colonoscopy. Status at Discharge Functional status at discharge: independent ambulation Overall status at discharge: patient is back to baseline Time Spent with Patient Time attestation: Total time spent providing and/or coordinating discharge services: Discharge coordination time: Greater than 30 minutes Quality: Safe Use of Opioids Does Pt have an Active Cancer Diagnosis on the Problem List?: No Quality: Stroke Does the patient have a stroke diagnosis?: No Physical Exam Vital Signs: Vital Signs: Last Vital Signs Temp 97.8 F 03/05/22 11:47 Pulse 90 03/05/22 11:47 Resp 17 03/05/22 11:47 BP 122/77 03/05/22 11:47 Pulse Ox 98 03/05/22 11:47 O2 Del Method 03/05/22 11:47 BMI result Body Mass Index 30.4 Const: General: comfortable, no acute distress and alert Orientation/consciousness: patient oriented x3 Resp: Effort & Inspection: normal respiratory effort GI: Inspection: No distended Palpation (GI): Soft to palpation, Tenderness to palpation present (GI) (mild pinpoint LLQ) with no rebound tenderness, no guarding and not rigid Skin: General skin exam: no rashes or lesions noted Neuro: General: patient oriented x3 and moves all extremities Extrem: General: Yes no clubbing, cyanosis or edema DS: Data Data Completed and Pending Labs on day of discharge: Preliminary micro results at discharge 03/02/22 23:14 Blood Culture - Preliminary Blood - Venous No growth after 48 hours. 03/02/22 23:05 Blood Culture - Preliminary Blood - Venous No growth after 48 hours. Discharge Plan Discharge Anticipated Discharge Date/Time: 03/05/22 13:28 Patient Disposition: Home, Self-Care Discharge Diagnosis: diverticulitis with microperforation Referrals: Quinton Silva MD [Physician] - 1 Week PhysicianChiara [Primary Care Provider] - 1 Week Isma Dewey [Physician] - 2 Weeks Discharge Medications: New amoxicillin-pot clavulanate 875-125 mg tablet 1 tab PO BID Qty: 20 0RF Continued Ultra CoQ10 75 mg capsule 75 mg PO DAILY Fish Oil 100-160-1,000 mg capsule 1 cap PO DAILY Discharge Orders: Discharge Order (Routine); Ordered 03/05/22 Ordered By: Mary Anne Jacobsen Diet: Low residue diet Activity on Discharge: As tolerated Stand Alone Forms: Patient Portal Discharge page Care Plan Goals: Resolution of pain Health Concerns: Perforated diverticulitis Plan of Treatment: IV abx, IV zosyn and transition to PO abx Assessment: Improved Patient Instructions: Diverticulitis Diet (DC)
== END 2022-03-05 13:24 | disposition home or self-care (01) | DRG 872 ==
LOC: HO.ED 23:02 → HO.EDOVER 03-03 00:08 → HO.S3 03-03 19:08
PROVIDERS: Physician Assistant; Admitting Provider Surgery; Emergency Provider Student in an Organized Health Care Education/Training Program; Visit Provider Surgery
DX: A41.9 Sepsis, unspecified organism (principal); K57.20 Diverticulitis of large intestine with perforation and abscess without bleeding; Z20.822 Contact with and (suspected) exposure to COVID-19
CPT/HCPCS: 36415; 74176; 80048; 81003; 83605; 83690; 85025; 87040; 87635; 99218; 99285; J1170; J2543

== ENCOUNTER 2022-03-10 15:55 | Inpatient (IN) | payer OTHER, SELFPAY ==
--- NOTE | ~2022-03-10 | CT_ITS ---
EXAMINATION: CT ABDOMEN AND PELVIS WITH CONTRAST CLINICAL INFORMATION: Fever, elevated WBC. Diverticular abscess. COMPARISON: Abdomen and pelvic CT of 03/11/2022, 03/02/2022. TECHNIQUE: Multidetector volumetric images were obtained from the superior aspect of the liver through the pubic symphysis following administration 85 mL of Omnipaque 350 intravenous contrast. Sagittal and coronal reformatted images were obtained on the technologist's workstation. Oral contrast: No. This CT examination was performed using dose optimization techniques as appropriate, variously including the following: *Automated exposure control *Adjustment of mA and/or kV according to patient size (this includes techniques or standardized protocols for targeted exams where dose is matched to indication/reason for exam; i.e. extremities or head) *Use of iterative reconstruction technique DLP: 774 mGy-cm FINDINGS: LUNG BASES: Minimal dependent atelectasis is noted at the right lung base. No pleural effusion. No pericardial effusion. The lung bases are otherwise unremarkable. LIVER, GALLBLADDER, AND BILIARY TREE: The liver is normal in size, shape, and attenuation. No focal hepatic lesion or biliary ductal dilatation is present. The gallbladder is unremarkable with no evidence of radiopaque gallstones, gallbladder wall thickening, or obvious pericholecystic inflammatory changes. PANCREAS: Unremarkable. SPLEEN: Unremarkable. ADRENAL GLANDS: Unremarkable. KIDNEYS AND URETERS: The kidneys are normal in size, shape, and attenuation. No hydronephrosis, hydroureter, or calculi seen. No perinephric stranding. BLADDER: Mildly underdistended, however, there is no evidence of radiopaque calculi, asymmetrical bladder wall thickening or soft tissue mass. GASTROINTESTINAL TRACT: Pancolonic diverticulosis is again noted. Diverticular abscess in the upper pelvis along the posterior wall of the proximal sigmoid colon is noted, measuring approximately 6.4 x 3.3 cm in AP and transverse dimension, previously 5.1 x 2.2 cm. Surrounding fat stranding and induration with few extraluminal air foci are again noted; the changes extend more superiorly in the retroperitoneal region. Remainder of the colon does not demonstrate colonic wall thickening or pericolonic fat stranding. ABDOMINAL WALL: No significant hernia is appreciated. LYMPH NODES: No evidence of pathologically enlarged lymph nodes. VASCULAR: Unremarkable. PELVIC VISCERA: Unremarkable. OSSEOUS STRUCTURES: Unremarkable. CT/CT abdomen pelvis w IV con IMPRESSION: Pancolonic diverticulosis. Diverticular abscess in the upper pelvis along the posterior wall of the proximal sigmoid colon is mildly increased in size compared to previous CT of 03/11/2022. Surrounding fat stranding and induration with few extraluminal air foci are again noted; the changes extend more superiorly in the retroperitoneal region. The fat stranding and induration in the region appear to be mildly increased compared to previous CT of 03/11/2022. Fleischner guidelines were followed.
--- NOTE | ~2022-03-10 | US_ITS ---
EXAMINATION: US SCROTUM CLINICAL INFORMATION: Lower abdominal pain with radiation to bilateral testicles. COMPARISON: None TECHNIQUE: A sonogram of the scrotum was performed assessing dean-scale appearance and color Doppler flow. Spectral Doppler analysis of the arterial and venous flow were performed in the testes bilaterally. FINDINGS: RIGHT: Right testicle measures 3.9 x 2.4 x 3.0 cm, volume 14.4 mL. No focal testicular parenchymal lesions are visualized. Spectral Doppler analysis of the arterial and venous flow is normal in the right testis. Right epididymal head is normal in size. No right hydrocele or varicocele is seen. Right epididymal Doppler flow is normal. LEFT: Left testicle measures 4.1 x 2.5 x 3.0 cm, volume 16.0 mL. No focal testicular parenchymal lesions are visualized. Spectral Doppler analysis of the arterial and venous flow is normal in the left testis. Left epididymal head is normal in size. Left epididymal head cyst measures 0.3 cm. No left hydrocele or varicocele is seen. Left epididymal Doppler flow is normal. US/US scrotum doppler IMPRESSION: No acute findings identified.
--- NOTE | ~2022-03-10 | CT_ITS ---
EXAMINATION: CT ABDOMEN AND PELVIS WITH CONTRAST CLINICAL INFORMATION: Left lower quadrant pain COMPARISON: 03/02/2022 TECHNIQUE: Multidetector volumetric images were obtained from the superior aspect of the liver through the pubic symphysis following administration 85 mL of Omnipaque 350 intravenous contrast. Sagittal and coronal reformatted images were obtained on the technologist's workstation. Oral contrast: No This CT examination was performed using dose optimization techniques as appropriate, variously including the following: *Automated exposure control *Adjustment of mA and/or kV according to patient size (this includes techniques or standardized protocols for targeted exams where dose is matched to indication/reason for exam; i.e. extremities or head) *Use of iterative reconstruction technique DLP: 740 mGy-cm FINDINGS: LUNG BASES: The visualized lung bases are unremarkable. LIVER, GALLBLADDER, AND BILIARY TREE: The liver is normal in size, shape, and attenuation. No focal hepatic lesion or biliary ductal dilatation is present. The gallbladder is unremarkable with no evidence of radiopaque gallstones, gallbladder wall thickening, or obvious pericholecystic inflammatory changes. PANCREAS: Unremarkable. SPLEEN: Unremarkable. ADRENAL GLANDS: Unremarkable. KIDNEYS AND URETERS: The kidneys are normal in size, shape, and attenuation. No hydronephrosis, hydroureter, or calculi seen. No perinephric stranding. BLADDER: Mildly distended with a diffusely thick-walled appearance, which could be reactive secondary to adjacent inflammation. GASTROINTESTINAL TRACT: No evidence of bowel obstruction. In comparison to the prior examination there is increasing inflammation adjacent to the mid sigmoid colon at the location of previously identified perforated diverticulitis. Currently there is an approximately 3.8 x 1.9 cm focal fluid collection in this region to the left of the sigmoid colon which is suspicious for developing abscess. Several foci of gas track superiorly from this location, and it is difficult to determine whether these are within the collection or represent free air. There is similar to mildly worsened wall thickening throughout much of the sigmoid colon in this region. The appendix is unremarkable. ABDOMINAL WALL: No significant hernia is appreciated. LYMPH NODES: Normal. VASCULAR: Unremarkable. PELVIC VISCERA: Unremarkable. OSSEOUS STRUCTURES: Unremarkable. CT/CT abdomen pelvis w IV con IMPRESSION: 1. Increasing inflammation adjacent to the mid sigmoid colon at the location of previously identified perforated diverticulitis. Currently there is a 3.8 x 1.9 cm focal fluid collection to the left of the sigmoid colon which is suspicious for developing abscess. Several foci of gas track superiorly from this location, and it is difficult to determine whether these are within the collection or represent free air. 2. Diffusely thick-walled appearance of the urinary bladder, which could be reactive secondary to adjacent inflammation.
--- NOTE | ~2022-03-10 | US_ITS ---
EXAMINATION: US SCROTUM CLINICAL INFORMATION: Lower abdominal pain with radiation to bilateral testicles. COMPARISON: None TECHNIQUE: A sonogram of the scrotum was performed assessing dean-scale appearance and color Doppler flow. Spectral Doppler analysis of the arterial and venous flow were performed in the testes bilaterally. FINDINGS: RIGHT: Right testicle measures 3.9 x 2.4 x 3.0 cm, volume 14.4 mL. No focal testicular parenchymal lesions are visualized. Spectral Doppler analysis of the arterial and venous flow is normal in the right testis. Right epididymal head is normal in size. No right hydrocele or varicocele is seen. Right epididymal Doppler flow is normal. LEFT: Left testicle measures 4.1 x 2.5 x 3.0 cm, volume 16.0 mL. No focal testicular parenchymal lesions are visualized. Spectral Doppler analysis of the arterial and venous flow is normal in the left testis. Left epididymal head is normal in size. Left epididymal head cyst measures 0.3 cm. No left hydrocele or varicocele is seen. Left epididymal Doppler flow is normal. US/US scrotum IMPRESSION: No acute findings identified.
[2022-03-10 16:01] VITALS: BP 144/89; PULSE 97; RESP 18; TEMP 36.1; O2SAT 98; BMI 30.4
--- NOTE | 2022-03-10 22:28 | ED_ITS ---
HPI - Abdominal Pain General Chief Complaint: Abdominal Pain Stated Complaint: ? diverticulitis Time Seen by Provider: 03/10/22 22:07 Source: patient Mode of arrival: ambulatory Limitations: no limitations History of Present Illness HPI narrative: 36-year-old male with history of diverticulitis presents to the emergency department with abdominal cramping x a few days. Patient reports he was here 1 week ago with an episode of diverticulitis, in which he was discharged on Augmentin. Today patent complaints of epigastric/lower abdominal abdominal cramping/ discomfort, tells me something feels off . Patient reports his current level of discomfort is a 5/10, reports that it intermittently radiates to testicles at times however, not always. Patient reports his symptoms are not as severe as last week. Patient reports taking his temperature earlier today and was 99.8 and patient continues to feel warm. Patient reports he called 1 of his providers and they recommended coming in for re-evaluation. Patient reports he is able to tolerate eating and drinking. Denies chest pain, shortness of breath, headaches, nausea, vomiting, diarrhea, constipation, dizziness, weakness. No concerns for STD denies penile dc Related Data Home Medications Medication Instructions Recorded Confirmed coenzyme Q10 75 mg capsule (Ultra 75 mg PO DAILY 03/02/22 03/03/22 CoQ10) omega 7-[id number]-[id number]-fish oil 100 1 cap PO DAILY 03/02/22 03/03/22 mg-160 mg-1,000 mg capsule (Fish Oil) Previous Rx's Medication Instructions Recorded amoxicillin 875 mg-potassium 1 tab PO BID #20 tabs 03/05/22 clavulanate 125 mg tablet Allergies Allergy/AdvReac Type Severity Reaction Status Date / Time No Known Allergies Allergy Verified 03/02/22 15:51 Review of Systems Review of Systems Constitutional : No Weight loss, No Fever, No Chills, No Fatigue, No Malaise ENT/Mouth : No sore throat, No Rhinorrhea Eyes: No Eye Pain, No Swelling, No Redness Cardiovascular : No Chest Pain, No SOB, No Dyspnea on Exertion, No Orthopnea, No Edema, No Palpitations Respiratory : No Cough, No Sputum, No Wheezing Gastrointestinal : No Nausea, No Vomiting, No Diarrhea, No Constipation, + abdominal Pain, No Hematochezia, No Melena Genitourinary : No Dysuria, No Urinary Frequency, No Hematuria, + testicular discomfort Musculoskeletal : No joint pain, No Myalgias, No Joint Swelling Skin : No Skin Lesions, No rash Neuro : No Weakness, No Numbness, No Dizziness, No Headache Psych : No Anxiety/Panic, No Depression All other systems reviewed and are negative Yes all other systems are reviewed and are negative FOR[facility]LY [facility], [facility] Past Medical History Attestation statement: The following information was validated with the patient. Source: old records reviewed and nursing notes reviewed Social History Social History Household Members: Spouse, Family and Children Housing: House Do you presently have visiting nurse or other home services: No Patient Tobacco Use Status: Never used Tobacco Smoked in Last 30 Days: No Use of substances other than those prescribed or required for medical reasons: No Advance Directives: No Advance Directives Information Provided: No service: No Current occupational status: employed Physical Exam ED Vital Signs: Vital Signs - 24 hr 03/10/22 16:01 03/10/22 22:45 Temperature 96.9 F 99.8 F Pulse Rate 97 94 Respiratory Rate 18 20 Blood Pressure 144/89 H 130/79 Pulse Oximetry 98 96 Oxygen Delivery Method Room Air Room Air BMI result Body Mass Index 30.4 vss Appearance: Alert.? Oriented X3.? No acute distress.? Head: Normocephalic, atraumatic, no step-offs or deformities Eyes: Pupils equal, round and reactive to light.? CVS: Normal heart rate and rhythm.? Pulses normal.? Respiratory: No respiratory distress.? Breath sounds normal.? Abdomen: Soft and + mild tenderness to lower abd.?Normoactive bowel sounds. Negative Juares sign CT, negative Rovsing & McBurney's. Skin: Skin warm and dry.? Normal skin color.? Normal skin turgor.? Extremities: No lower extremity edema.? No calf ttp. 5/5 strength to bilateral upper and lower extremities Sensitive exam: Deferred Neuro: Oriented X 3.? No motor deficit.? No sensory deficit. CN 2-12 intact Course Reevaluation(s) Reevaluation #1: Patient with slight leukocytosis however this appears to be around his baseline. Chemistry with no acute findings requiring intervention. Lipase within normal limits, no signs of pancreatitis. UA clean without infection. COVID negative. Ultrasound of scrotum with no acute findings, normal flow bilaterally no signs of torsion. Pending CT of the abdomen and pelvis to rule out diverticulitis. Time: 00:44 Reevaluation #2: Patient's CT of the abdomen and pelvis showing inflammation adjacent to the mid sigmoid colon at the location of previously identified perforated diverticulitis. There is a small fluid collection to the left time the sigmoid colon which is suspicious for developing abscess. Several foci of gas tracking superiorly from this location, concerning for free air. Will reach out to surgery to discuss this case. Time: 02:00 Reevaluation #3: Discuss this case with surgery will admit patient for further evaluation and treatment as necessary. Time: 02:16 MDM - Abdominal Pain MDM Narrative Medical decision making narrative: [id number] 36 year old male presents with crampy epigastric & lower abd pain with intermitent radiation to testicles. Report it feels similar to a weeks ago when he had diverticulitis, however symptoms not as severe. tollerating PO. Recently finished out patient therapy for tx of diverticulitis. Advised to come in by outpatient provider PE benign patient appears well. Deferred sensitive exam. Mild tenderness to lower abdomen. Negative CVA tenderness. Will rule out diverticulitis/ torsion. Unlikley STD patient garcia no concers. Unlikley UTI no urinary sx. No signs of acute abdomen. Unlikely appendicitis, cholecystitis, pancreatitis. Plan at this time is labs, imaging. Medical Records Attestation: I reviewed the patient's medical records. Lab Data Attestation: I reviewed the patient's lab results. Result diagrams: 03/10/22 22:30 03/10/22 22:30 Labs: Lab Results 03/10/22 03/10/22 03/10/22 Range/Units 22:30 22:30 22:30 WBC 12.8 H (4.8-10.8) X10*3/uL RBC 4.64 (4.60-5.80) X10*6/uL Hgb 13.5 L (14.0-18.0) g/dl Hct 41.2 L (42.0-52.0) % MCV 88.8 (80.0-98.0) fL MCH 29.1 (27.0-33.0) pg MCHC 32.8 (31.0-36.0) g/dl RDW 11.6 (11.0-16.0) % Plt Count 342 D (160-400) X10*3/uL MPV 9.5 (9.4-12.4) fL Immature Gran % (Auto) 0.5 H (0.0-0.4) % Neut % (Auto) 72.6 (45-73) % Lymph % (Auto) 15.2 L (20-40) % [place] % (Auto) 10.0 (2-11) % Eos % (Auto) 1.2 (0-4) % Baso % (Auto) 0.5 (0-2) % Lymph # (Auto) 1.9 (1.2-4.9) X10*3/uL [place] # (Auto) 1.3 H (0.1-1.2) X10*3/uL Eos # (Auto) 0.2 (0.0-0.4) X10*3/uL Baso # (Auto) 0.1 (0.0-0.2) X10*3/uL Abs Immat Gran (auto) 0.07 H (0.00-0.03) X10*3/uL Absolute Neuts (auto) 9.3 H (2.0-8.3) x10*3/uL Absolute Nucleated RBC 0.000 (0.0-0.012) X10*3/uL Nucleated RBC % (auto) 0.0 (0.0-0.2) /100WBC Sodium 138 (135-145) mmol/L Potassium 4.0 (3.3-5.1) mmol/L Chloride 99 (96-108) mmol/L Carbon Dioxide 28 (22-29) mmol/L Anion Gap 15 (12-20) BUN 8 L (9-16) mg/dL Creatinine 0.99 (0.5-1.4) mg/dL Estim Creat Clear Calc 112.8 Estimated GFR > 60 Random Glucose 111 (60-115) mg/dL Calcium 9.2 D (8.4-10.2) mg/dL Magnesium 2.1 (1.6-2.6) mg/dL Total Bilirubin 0.4 (0.0-1.0) mg/dL AST 18 (5-37) U/L ALT 64 H (0-40) U/L Alkaline Phosphatase 112 (39-117) U/L Total Protein 6.9 (6.5-8.0) g/dL Albumin 4.2 (3.5-5.0) g/dL Lipase 23 (8-78) U/L Urine Color Urine Appearance Urine pH (5.0-9.0) Ur Specific [place] (1.005-1.025) Urine Protein (Neg-Trace) mg/dL Urine Glucose (UA) (Negative) mg/dL Urine Ketones (Negative) mg/dL Urine Blood (Negative) Urine Nitrite (Negative) Ur Leukocyte Esterase (Negative) COVID-19 (MAGALIE) Negative (Negative) COVID-19 Clin Com See Note 03/10/22 Range/Units 23:44 WBC (4.8-10.8) X10*3/uL RBC (4.60-5.80) X10*6/uL Hgb (14.0-18.0) g/dl Hct (42.0-52.0) % MCV (80.0-98.0) fL MCH (27.0-33.0) pg MCHC (31.0-36.0) g/dl RDW (11.0-16.0) % Plt Count (160-400) X10*3/uL MPV (9.4-12.4) fL Immature Gran % (Auto) (0.0-0.4) % Neut % (Auto) (45-73) % Lymph % (Auto) (20-40) % [place] % (Auto) (2-11) % Eos % (Auto) (0-4) % Baso % (Auto) (0-2) % Lymph # (Auto) (1.2-4.9) X10*3/uL [place] # (Auto) (0.1-1.2) X10*3/uL Eos # (Auto) (0.0-0.4) X10*3/uL Baso # (Auto) (0.0-0.2) X10*3/uL Abs Immat Gran (auto) (0.00-0.03) X10*3/uL Absolute Neuts (auto) (2.0-8.3) x10*3/uL Absolute Nucleated RBC (0.0-0.012) X10*3/uL Nucleated RBC % (auto) (0.0-0.2) /100WBC Sodium (135-145) mmol/L Potassium (3.3-5.1) mmol/L Chloride (96-108) mmol/L Carbon Dioxide (22-29) mmol/L Anion Gap (12-20) BUN (9-16) mg/dL Creatinine (0.5-1.4) mg/dL Estim Creat Clear Calc Estimated GFR Random Glucose (60-115) mg/dL Calcium (8.4-10.2) mg/dL Magnesium (1.6-2.6) mg/dL Total Bilirubin (0.0-1.0) mg/dL AST (5-37) U/L ALT (0-40) U/L Alkaline Phosphatase (39-117) U/L Total Protein (6.5-8.0) g/dL Albumin (3.5-5.0) g/dL Lipase (8-78) U/L Urine Color Yellow Urine Appearance Clear Urine pH 7.0 (5.0-9.0) Ur Specific [place] 1.010 (1.005-1.025) Urine Protein Negative (Neg-Trace) mg/dL Urine Glucose (UA) Negative (Negative) mg/dL Urine Ketones Negative (Negative) mg/dL Urine Blood Negative (Negative) Urine Nitrite Negative (Negative) Ur Leukocyte Esterase Negative (Negative) COVID-19 (MAGALIE) (Negative) COVID-19 Clin Com Critical Care Time Critical Care Time Critical Care Time: Yes Total Critical Care Time: 35 Attestation: I attest to this time spent taking care of the patient, obtaining history, physical, reviewing labs, imaging, speaking to my attending, speaking to specialist. Discharge Plan Discharge Clinical Impression: Abdominal pain, Colonic diverticular abscess Patient Disposition: Admitted As Inpatient Instructions: Abdominal Pain (ED) Prescriptions: No Action amoxicillin-pot clavulanate 875-125 mg tablet 1 tab PO BID Qty: 20 0RF Ultra CoQ10 75 mg capsule 75 mg PO DAILY Fish Oil 100-160-1,000 mg capsule 1 cap PO DAILY Referrals: [facility] [place] [facility] [Provider Group] - 2 days Ana Boothe [employer]LE[employer]PERATIONS MANAGER [Primary Care Provider] - 2 days Stand Alone Forms: Work/School Release
[2022-03-10 22:37] LABS: MANUAL DIFF FLAG NO
[2022-03-10 22:45] VITALS: BP 130/79; PULSE 94; RESP 20; TEMP 37.7; O2SAT 96
[2022-03-10 22:47] LABS: Basophils Absolute Auto 0.1 X10*3/uL (0.0-0.2); Basophils Percent Auto 0.5 % (0-2); Eosinophils Absolute Auto 0.2 X10*3/uL (0.0-0.4); Eosinophils Percent Auto 1.2 % (0-4); Hematocrit 41.2 % (42.0-52.0); Hemoglobin 13.5 g/dl (14.0-18.0); Imm Gran Abs Auto 0.07 X10*3/uL (0.00-0.03); Imm Gran Pct Auto 0.5 % (0.0-0.4); Lymphocytes Absolute Auto 1.9 X10*3/uL (1.2-4.9); Lymphocytes Percent Auto 15.2 % (20-40); Mean Corpuscular HGB Conc 32.8 g/dl (31.0-36.0); Mean Corpuscular Hemoglobin 29.1 pg (27.0-33.0); Mean Corpuscular Volume 88.8 fL (80.0-98.0); Mean Platelet Volume 9.5 fL (9.4-12.4); Monocytes Absolute Auto 1.3 X10*3/uL (0.1-1.2); Neutrophils Absolute Auto 9.3 x10*3/uL (2.0-8.3); Neutrophils Percent Auto 72.6 % (45-73); Platelet Count 342 X10*3/uL (160-400); Red Blood Count 4.64 X10*6/uL (4.60-5.80); Red Cell Distribution Width 11.6 % (11.0-16.0); White Blood Count 12.8 X10*3/uL (4.8-10.8)
[2022-03-10 22:55] LABS: IDNOW Serial# 55D5AD1C
[2022-03-10 22:56] LABS: COVID-19 Test Negative (Negative)
[2022-03-10] MEDS: Magnesium Hydrox/Alum Hydrox 30 ML ORAL.SUSP PO (23:35)
[2022-03-10] MEDS: PHENobarb/Hyoscy/Atropine/Scop 10 ML ELIXIR PO (23:36)
[2022-03-10] MEDS: Ketorolac Tromethamine 15 MG/ML VIAL 30 MG IVPUSH (23:38)
[2022-03-10 23:58] LABS: Alanine Aminotransferase 64 U/L (0-40); Albumin Level 4.2 g/dL (3.5-5.0); Alkaline Phosphatase 112 U/L (39-117); Anion Gap 15 (12-20); Aspartate Amino Transferase 18 U/L (5-37); Bilirubin Total 0.4 mg/dL (0.0-1.0); Blood Urea Nitrogen 8 mg/dL (9-16); Calcium 9.2 mg/dL (8.4-10.2); Carbon Dioxide 28 mmol/L (22-29); Chloride 99 mmol/L (96-108); Creatinine Clr Calc Pharmacy 112.8; Estimated Glomerular Filt Rate > 60; Glucose Random 111 mg/dL (60-115); Lipase 23 U/L (8-78); Magnesium 2.1 mg/dL (1.6-2.6); Sodium 138 mmol/L (135-145); Total Protein 6.9 g/dL (6.5-8.0)
[2022-03-11 00:02] LABS: Appearance Urine Clear; Color Urine Yellow; Glucose Urine UA Negative (Negative); Leukocyte Esterase Urine Negative (Negative); Nitrite Urine Negative (Negative); Urine Blood Negative (Negative); Urine Ketones Negative (Negative); Urine Protein Negative (Neg-Trace)
[2022-03-11] MEDS: iohexoL 350 MG/ML 100 ML INFUS..BTL 85 ML IV (01:33)
[2022-03-11] MEDS: metroNIDAZOLE/NS 500 MG/100 ML PIGGYBACK 100 MG IV (02:55)
[2022-03-11 02:57] VITALS: BP 116/77; PULSE 82; RESP 16; TEMP 36.9; O2SAT 96
[2022-03-11 03:33] LABS: Lactic Acid 0.6 mmol/L (0.5-2.0)
[2022-03-11 03:36] LABS: Anion Gap 16 (12-20); Blood Urea Nitrogen 9 mg/dL (9-16); Calcium 8.9 mg/dL (8.4-10.2); Carbon Dioxide 25 mmol/L (22-29); Chloride 100 mmol/L (96-108); Creatinine Clr Calc Pharmacy 120.1; Estimated Glomerular Filt Rate > 60; Glucose Random 97 mg/dL (60-115); Potassium 4.1 mmol/L (3.3-5.1); Sodium 137 mmol/L (135-145)
[2022-03-11] MEDS: 0.9 % Sodium Chloride 1,000 ML 999 ML IV (03:49)
[2022-03-11] MEDS: levoFLOXacin/D5W 750 MG/150 ML PIGGYBACK 100 MG IV (04:23)
[2022-03-11] MEDS: Dextrose 5 % and Lactated Ring 1,000 ML 125 ML IVCONT ×3 (05:23→23:29)
[2022-03-11] MEDS: HYDROmorphone HCl 0.5 MG/0.5 ML SYRINGE IVPUSH ×2 (05:34→21:12)
[2022-03-11] MEDS: Piperacillin Sodium/Tazobactam 3.375 GM in 0.9 % Sodium Chloride 50 ML IV ×4 (06:17→23:38)
[2022-03-11 07:50] VITALS: BP 121/82; PULSE 81; RESP 20; O2SAT 97
[2022-03-11] MEDS: Acetaminophen 325 MG TABLET 650 MG PO ×2 (07:51→16:52)
--- NOTE | 2022-03-11 07:51 | PHA.MEDREC ---
Pharmacy Consult ? Medication Reconciliation Pharmacy has completed the medication reconciliation. sPOKE WITH PATIENT IN ED
--- NOTE | 2022-03-11 09:06 | PM.HPGS ---
History of Present Illness History of Present Illness Date of Service: 03/11/22 <Mary Anne Jacobsen PA-C - Last Filed: 03/11/22 09:29> 03/11/22 <Quinton Silva MD - Last Filed: 03/11/22 13:09> Chief complaint: sigmoid diverticulitis w/ abscess <Mary Anne Jacobsen PA-C - Last Filed: 03/11/22 09:29> Narrative: Salomon Gunderson is a 36 year old male recently admitted for acute sigmoid diverticulitis with perforation. He was well appearing at that time and conservative treatment was ensued with IV zosyn and bowel rest. He improved with nonoperative measures and was discharged on 03/05/22 on a 10 day course of PO augmentin. He reports he felt well at home until yesterday 03/10/22 when he developed the same LLQ pain. He had been taking the Augmentin. The pain progressively worsened and was associated with low grade fevers. He therefore came back to the ED for evaluation. Repeat CT scan was performed which showed increasing inflammation of the sigmoid colon in the previous area of perforated diverticulitis with a small adjacent fluid collection. He also had a WBC count of 12.8. <Mary Anne Jacobsen PA-C - Last Filed: 03/11/22 09:29> Review of Systems Constitutional: Constitutional: Denies chills, Reports fever(s) and Denies malaise <Mary Anne Jacobsen PA-C - Last Filed: 03/11/22 09:29> ENT: Denies dizziness <Mary Anne Jacobsen PA-C - Last Filed: 03/11/22 09:29> Cardiovascular: Cardiovascular: Denies chest pain, Denies palpitations and Denies dyspnea <Mary Anne Jacobsen PA-C - Last Filed: 03/11/22 09:29> Respiratory: Respiratory: Denies cough and Denies dyspnea <GIANFRANCO Max Last Filed: 03/11/22 09:29> Gastrointestinal: Gastrointestinal: Reports as per HPI, Denies diarrhea and Denies vomiting <GIANFRANCO Max Last Filed: 03/11/22 09:29> Genitourinary: Genitourinary: Denies hematuria and Denies dysuria <Mary Anne Jacobsen PA-C - Last Filed: 03/11/22 09:29> Integumentary/Breasts: Skin/Breast: Denies rash <Mary Anne Jacobsen PA-C - Last Filed: 03/11/22 09:29> Neurologic: Denies dizziness <Mary Anne Jacobsen PA-C - Last Filed: 03/11/22 09:29> Endocrine: Endocrine: Denies palpitations <Mary Anne Jacobsen PA-C - Last Filed: 03/11/22 09:29> [facility] Social History Social History: Social History Household Members: Spouse, Family and Children Housing: House Do you presently have visiting nurse or other home services: No Patient Tobacco Use Status: Never used Tobacco Smoked in Last 30 Days: No Use of substances other than those prescribed or required for medical reasons: No Advance Directives: No Advance Directives Information Provided: No service: No Current occupational status: employed <GIANFRANCO Max Last Filed: 03/11/22 09:29> Meds Allergies/Adverse reactions: Allergies Allergy/AdvReac Type Severity Reaction Status Date / Time No Known Allergies Allergy Verified 03/02/22 15:51 <Mary Anne Jacobsen PA-C Last Filed: 03/11/22 09:29> Active Medications: Current Medications Acetaminophen (Acetaminophen 325 Mg Tablet) 650 mg PO QID PRN PRN Reason: headache, temp > 101 Last Admin: 03/11/22 07:51 Dose: 650 mg Hydromorphone HCl (Hydromorphone Hcl 0.5 Mg/0.5 Ml Syringe) 0.5 mg IVPUSH Q3H PRN; Protocol PRN Reason: Pain, Severe (Pain Scale 7-10) Last Admin: 03/11/22 05:34 Dose: 0.5 mg Dextrose/Lactated Ringer's (D5lr) 1,000 mls @ 125 mls/hr IVCONT .Q8H [facility] Last Admin: 03/11/22 05:23 Dose: 125 mls/hr Piperacillin Sod/Tazobactam (Sod 3.375 gm/ Sodium Chloride) 50 mls @ 100 mls/hr IV Q6H [facility] Last Infusion: 03/11/22 06:47 Dose: Infused Ondansetron HCl (Ondansetron Hcl 4 Mg/2 Ml Vial) 4 mg IVPUSH QID PRN PRN Reason: Nausea Pharmacy Consult (Consult Rx Perform Med Rec) 1 each MISCELLANE ONCE PRN PRN Reason: Consult order Sodium Chloride (0.9 % Sodium Chloride Flush 3 Ml Syringe) 3 ml IVFLUSH QSHIFT [facility] Last Admin: 03/11/22 06:55 Dose: Not Given Zolpidem Tartrate (Zolpidem Tartrate 5 Mg Tablet) 5 mg PO BEDTIME PRN PRN Reason: Insomnia <GIANFRANCO Max Last Filed: 03/11/22 09:29> Home medications: Home Medications Medication Instructions Recorded Confirmed Last Taken Type coenzyme Q10 75 mg capsule (Ultra 75 mg PO DAILY 03/02/22 03/11/22 03/10/22 History CoQ10) omega 7-xjw-mpo-fish oil 100 1 cap PO DAILY 03/02/22 03/11/22 03/10/22 History mg-160 mg-1,000 mg capsule (Fish Oil) <GIANFRANCO Max Last Filed: 03/11/22 09:29> Physical Exam Vital Signs: Vital Signs: Last Vital Signs Temp 98.4 F 03/11/22 02:57 Pulse 81 03/11/22 07:50 Resp 20 03/11/22 07:50 BP 121/82 03/11/22 07:50 Pulse Ox 97 03/11/22 07:50 O2 Del Method 03/11/22 07:50 BMI result Body Mass Index 30.4 <GIANFRANCO Max Last Filed: 03/11/22 09:29> Const: General: comfortable, no acute distress and alert <GIANFRANCO Max Last Filed: 03/11/22 09:29> Resp: Effort & Inspection: normal respiratory effort <GIANFRANCO Max Last Filed: 03/11/22 09:29> Cardio: Rate: regular rate <GIANFRANCO Max Last Filed: 03/11/22 09:29> GI: Inspection: No distended <Mary Anne Jacobsen PA-C - Last Filed: 03/11/22 09:29> Palpation (GI): Soft to palpation, Tenderness to palpation present (GI) in the LLQ (moderate) and suprapubicly; with no rebound tenderness, no guarding and not rigid <Mary Anne Jacobsen PA-C - Last Filed: 03/11/22 09:29> Percussion: Yes normal to percussion <GIANFRANCO Max Last Filed: 03/11/22 09:29> Skin: General skin exam: no rashes or lesions noted <GIANFRANCO Max Last Filed: 03/11/22 09:29> Neuro: General: moves all extremities <GIANFRANCO Max Last Filed: 03/11/22 09:29> Extrem: General: Yes no clubbing, cyanosis or edema <GIANFRANCO Max Last Filed: 03/11/22 09:29> Results Results Labs: Short CBC 03/10/22 Range/Units 22:30 WBC 12.8 H (4.8-10.8) X10*3/uL Hgb 13.5 L (14.0-18.0) g/dl Hct 41.2 L (42.0-52.0) % Plt Count 342 D (160-400) X10*3/uL BMP 03/10/22 03/11/22 22:30 03:13 Sodium 138 137 Potassium 4.0 4.1 Chloride 99 100 Carbon Dioxide 28 25 BUN 8 L 9 Creatinine 0.99 0.93 Calcium 9.2 D 8.9 Liver Function 03/10/22 Range/Units 22:30 Total Bilirubin 0.4 (0.0-1.0) mg/dL AST 18 (5-37) U/L ALT 64 H (0-40) U/L Alkaline Phosphatase 112 (39-117) U/L Albumin 4.2 (3.5-5.0) g/dL Urine 03/10/22 Range/Units 23:44 Urine Color Yellow Urine Appearance Clear Urine pH 7.0 (5.0-9.0) Ur Specific [place] 1.010 (1.005-1.025) Urine Protein Negative (Neg-Trace) mg/dL Urine Glucose (UA) Negative (Negative) mg/dL <GIANFRANCO Max Last Filed: 03/11/22 09:29> Additional studies: CT abd/pelvis - Increasing inflammation adjacent to the mid sigmoid colon at the location of previously identified perforated diverticulitis. Currently there is a 3.8 x 1.9 cm focal fluid collection to the left of the sigmoid colon which is suspicious for developing abscess. Several foci of gas track superiorly from this location, and it is difficult to determine whether these are within the collection or represent free <GIANFRANCO Max Last Filed: 03/11/22 09:29> Assessment and Plan (1) Colonic diverticular abscess: Status: Acute <Mary Anne Jacobsen PA-C - Last Filed: 03/11/22 09:29> 36-year-old male patient with recent admission for perforated diverticulitis treated conservatively who presented to the ED with recurrent LLQ abd pain. Patient was found to have elevated WBC and CT showing increasing sigmoid inflammation at the previous region of diverticulitis now with an abscess. He is non toxic appearing with moderate LLQ/suprapubic tenderness without any peritoneal signs. The abscess appears small and likely unable to be drained. Recommend a longer course of IV antibiotics and bowel rest. Will repeat CT scan in a few days to reassess collection. Discussed if he worsens or does not improve that he may need surgical intervention with sigmoid resection, possibly with ostomy. Patient expressed understanding and agrees with the plan. <Mary Anne Jacobsen PA-C - Last Filed: 03/11/22 09:29> 36-year-old male patient with recent admission for perforated diverticulitis treated conservatively who presented to the ED with recurrent LLQ abd pain. Patient was found to have elevated WBC and CT showing increasing sigmoid inflammation at the previous region of diverticulitis now with an abscess. He is non toxic appearing with moderate LLQ/suprapubic tenderness without any peritoneal signs. The abscess appears small and likely unable to be drained. Recommend a longer course of IV antibiotics and bowel rest. Will repeat CT scan in a few days to reassess collection. Discussed if he worsens or does not improve that he may need surgical intervention with sigmoid resection, possibly with ostomy. Patient expressed understanding and agrees with the plan. As noted above, 36-year-old male patient with a recurrent episode of diverticulitis now with evidence of perforation with abscess and small locules of free air. Symptoms were worse than when he initially felt during his last hospitalization for return to the emergency department for further evaluation. Agree with the above assessment and plan. Will monitor his progress on IV antibiotics. If there is no improvement in his symptoms, he may require a sigmoid resection. Expressed understanding and agrees with the plan. <Quinton Silva MD - Last Filed: 03/11/22 13:09> Quality Stroke Does the patient have a stroke diagnosis?: No <Mary Anne Jacobsen PA-C - Last Filed: 03/11/22 09:29> VTE Prior VTE?: No <Mary Anne Jacobsen PA-C - Last Filed: 03/11/22 09:29> VTE Risk Level:: Surgical - low <Mary Anne Jacobsen PA-C - Last Filed: 03/11/22 09:29> VTE Device Contraindication: N/A - Device Ordered <Mary Anne Jacobsen PA-C - Last Filed: 03/11/22 09:29> VTE Drug Contraindication: Treatment Not Indicated <Mary Anne Jacobsen PA-C - Last Filed: 03/11/22 09:29> Procedures Date of Service Date of Service: 03/11/22 <Mary Anne Jacobsen PA-C - Last Filed: 03/11/22 09:29>
--- NOTE | 2022-03-11 12:04 | MHC.CM.PN ---
Met with patient in regards to discharge planning. Patient lives with his and young children, ambulates independently and had no services prior to coming to the hospital. No services anticipated to be needed because patient is not homebound. PCP verified. Patient has a HCP at his previous PCP's office and will attempt to obtain a copy. Patient received 1 J&J vaccine and 1 Moderna booster. Patient's car is in the parking lot and he will transport himself home when medically stable. Continue to monitor for d/c needs.
[2022-03-11] MEDS: ondansetron HCL 4 MG/2 ML VIAL IVPUSH (13:04)
[2022-03-11 16:41] VITALS: BP 119/70; PULSE 90; RESP 18; TEMP 36.3; O2SAT 96
[2022-03-12] VITALS (7 sets, daily range): BP systolic 95–114; BP diastolic 55–71; PULSE 85–104; RESP 16–18; TEMP 36.7–38.7; O2SAT 96–97
[2022-03-12 05:38] LABS: MANUAL DIFF FLAG NO
[2022-03-12 05:43] LABS: Basophils Absolute Auto 0.1 X10*3/uL (0.0-0.2); Basophils Percent Auto 0.4 % (0-2); Eosinophils Absolute Auto 0.1 X10*3/uL (0.0-0.4); Eosinophils Percent Auto 0.7 % (0-4); Hemoglobin 12.6 g/dl (14.0-18.0); Imm Gran Abs Auto 0.08 X10*3/uL (0.00-0.03); Imm Gran Pct Auto 0.6 % (0.0-0.4); Lymphocytes Absolute Auto 1.5 X10*3/uL (1.2-4.9); Lymphocytes Percent Auto 10.9 % (20-40); Mean Corpuscular HGB Conc 33.2 g/dl (31.0-36.0); Mean Corpuscular Hemoglobin 29.8 pg (27.0-33.0); Mean Corpuscular Volume 89.8 fL (80.0-98.0); Mean Platelet Volume 9.5 fL (9.4-12.4); Monocytes Absolute Auto 1.1 X10*3/uL (0.1-1.2); Neutrophils Absolute Auto 10.8 x10*3/uL (2.0-8.3); Neutrophils Percent Auto 79.4 % (45-73); Platelet Count 325 X10*3/uL (160-400); Red Blood Count 4.23 X10*6/uL (4.60-5.80); Red Cell Distribution Width 11.6 % (11.0-16.0); White Blood Count 13.5 X10*3/uL (4.8-10.8)
[2022-03-12] MEDS: HYDROmorphone HCl 0.5 MG/0.5 ML SYRINGE IVPUSH ×3 (06:00→21:28)
[2022-03-12] MEDS: Piperacillin Sodium/Tazobactam 3.375 GM in 0.9 % Sodium Chloride 50 ML IV ×2 (06:05→10:49)
[2022-03-12] MEDS: Dextrose 5 % and Lactated Ring 1,000 ML 125 ML IVCONT ×3 (06:39→23:19)
[2022-03-12] MEDS: Acetaminophen 325 MG TABLET 650 MG PO ×3 (07:28→20:06)
--- NOTE | 2022-03-12 07:57 | PM.PNGS ---
Subjective Subjective Date of Service: 03/12/22 <Mary Anne Jacobsen PA-C - Last Filed: 03/12/22 08:03> 03/12/22 <Quinton Silva MD - Last Filed: 03/12/22 08:12> Interval history: Feeling ok, a little better this morning but still having sharp LLQ pains. Had an episode of nausea yesterday. Feels very hungry and wants to eat. Passing flatus but no BM. <Mary Anne Jacobsen PA-C - Last Filed: 03/12/22 08:03> Physical Exam Vital Signs: Vital Signs: Last Vital Signs Temp 101.0 F H 03/12/22 07:21 Pulse 91 03/12/22 07:21 Resp 16 03/12/22 07:21 BP 110/59 L 03/12/22 07:21 Pulse Ox 97 03/12/22 07:21 O2 Del Method 03/12/22 07:21 BMI result Body Mass Index 30.4 <Mary Anne Jacobsen PA-C - Last Filed: 03/12/22 08:03> Const: General: comfortable, no acute distress and alert <Mary Anne Jacobsen PA-C - Last Filed: 03/12/22 08:03> Orientation/consciousness: patient oriented x3 <GINAFRANCO Max Last Filed: 03/12/22 08:03> Resp: Effort & Inspection: normal respiratory effort <Mary Anne Jacobsen PA-C - Last Filed: 03/12/22 08:03> GI: Inspection: Yes normal to inspection and No distended <Mary Anne Jacobsen PA-C - Last Filed: 03/12/22 08:03> Palpation (GI): Soft to palpation, Tenderness to palpation present (GI) (LLQ, moderate) with no rebound tenderness, no guarding and not rigid <GIANFRANCO Max Last Filed: 03/12/22 08:03> Percussion: Yes normal to percussion <GIANFRANCO Max Last Filed: 03/12/22 08:03> Auscultation: normal bowel sounds <GIANFRANCO Max Last Filed: 03/12/22 08:03> Skin: General skin exam: no rashes or lesions noted <Mary Anne Jacobsen PA-C - Last Filed: 03/12/22 08:03> Neuro: General: patient oriented x3 <Mary Anne Jacobsen PA-C - Last Filed: 03/12/22 08:03> Extrem: General: Yes no clubbing, cyanosis or edema <Mary Anne Jacobsen PA-C - Last Filed: 03/12/22 08:03> Objective Data Active Medications Acetaminophen (Acetaminophen 325 Mg Tablet) 650 mg PO QID PRN PRN Reason: headache, temp > 101 Last Admin: 03/12/22 07:28 Dose: 650 mg Documented By: NIRALI Hydromorphone HCl (Hydromorphone Hcl 0.5 Mg/0.5 Ml Syringe) 0.5 mg IVPUSH Q3H PRN; Protocol PRN Reason: Pain, Severe (Pain Scale 7-10) Last Admin: 03/12/22 06:00 Dose: 0.5 mg Documented By: MALLORIE Dextrose/Lactated Ringer's (D5lr) 1,000 mls @ 125 mls/hr IVCONT .Q8H [facility] Last Admin: 03/12/22 06:39 Dose: 125 mls/hr Documented By: MALLORIE Piperacillin Sod/Tazobactam (Sod 3.375 gm/ Sodium Chloride) 50 mls @ 100 mls/hr IV Q6H [facility] Last Infusion: 03/12/22 06:44 Dose: 0 mls/hr Documented By: MALLORIE Ondansetron HCl (Ondansetron Hcl 4 Mg/2 Ml Vial) 4 mg IVPUSH QID PRN PRN Reason: Nausea Last Admin: 03/11/22 13:04 Dose: 4 mg Documented By: DARYL Pharmacy Consult (Consult Rx Perform Med Rec) 1 each MISCELLANE ONCE PRN PRN Reason: Consult order Sodium Chloride (0.9 % Sodium Chloride Flush 3 Ml Syringe) 3 ml IVFLUSH QSHIFT [facility] Last Admin: 03/12/22 01:08 Dose: Not Given Documented By: MALLORIE Non-Admin Reason: IV Running Zolpidem Tartrate (Zolpidem Tartrate 5 Mg Tablet) 5 mg PO BEDTIME PRN PRN Reason: Insomnia <Mary Anne Jacobsen PA-C - Last Filed: 03/12/22 08:03> Labs CBC & Chem 7: : 03/12/22 05:19 03/11/22 03:13 <Mary Anne Jacobsen PA-C - Last Filed: 03/12/22 08:03> Labs: Laboratory Results - last 24 hr 03/12/22 05:19 MCV 89.8 MCH 29.8 MCHC 33.2 RDW 11.6 Plt Count 325 MPV 9.5 Immature Gran % (Auto) 0.6 H Neut % (Auto) 79.4 H Lymph % (Auto) 10.9 L [place] % (Auto) 8.0 Eos % (Auto) 0.7 Baso % (Auto) 0.4 Lymph # (Auto) 1.5 [place] # (Auto) 1.1 Eos # (Auto) 0.1 Baso # (Auto) 0.1 Abs Immat Gran (auto) 0.08 H Absolute Neuts (auto) 10.8 H Absolute Nucleated RBC 0.000 Nucleated RBC % (auto) 0.0 <Mary Anne Jacobsen PA-C - Last Filed: 03/12/22 08:03> Microbiology Microbiology Results: Microbiology 03/11/22 03:13 Blood Culture - Preliminary Blood - Subclavian No growth after 24 hours. 03/11/22 03:13 Blood Culture - Preliminary Blood - Subclavian No growth after 24 hours. <Mary Anne Jacobsen PA-C - Last Filed: 03/12/22 08:03> Procedures Date of Service Date of Service: 03/12/22 <Mary Anne Jacobsen PA-C - Last Filed: 03/12/22 08:03> Progress Note: A&P Assessment and plan (1) Colonic diverticular abscess: Status: Acute <Mary Anne Jacobsen PA-C - Last Filed: 03/12/22 08:03> Assessment and Plan: 36 year old male readmitted with diverticulitis with small abscess. Feels overall a little better but continues with sharp LLQ pain. He is febrile this morning and WBC count is slightly higher. Abd exam is slightly improved with less tenderness, no peritoneal signs. Will obtain ID consult regarding IV abx. Will discuss with radiology to see if abscess amenable to IR drainage. Will advance to clears if no plan for drainage. If unable to be drained and no further improvement, possible need for surgical intervention discussed. Patient comfortable with plan. <Mary Anne Jacobsen PA-C - Last Filed: 03/12/22 08:03> 36 year old male readmitted with diverticulitis with small abscess. Feels overall a little better but continues with sharp LLQ pain. He is febrile this morning and WBC count is slightly higher. Abd exam is slightly improved with less tenderness, no peritoneal signs. Will obtain ID consult regarding IV abx. Will discuss with radiology to see if abscess amenable to IR drainage. Will advance to clears if no plan for drainage. If unable to be drained and no further improvement, possible need for surgical intervention discussed. Patient comfortable with plan. continues to have some pain in the left lower quadrant noted above. Examination reveals abdomen soft with no peritoneal signs however there is tenderness mainly in the left lower quadrant. Bowel sounds are normoactive. I am concerned that his WBC is not improving and recommended Infectious Disease consultation. Will start clear liquids today and recheck CBC in a.m.. <Quinton Silva MD - Last Filed: 03/12/22 08:12> Time Spent With Patient Time: Total time spent is greater than 50% in coordination of care (as documented) at patient's floor/unit and/or counseling patient: <Mary Anne Jacobsen PA-C - Last Filed: 03/12/22 08:03> Quality Stroke Does the patient have a stroke diagnosis?: No <Mary Anne Jacobsen PA-C - Last Filed: 03/12/22 08:03> VTE Prior VTE?: No <Mary Anne Jacobsen PA-C - Last Filed: 03/12/22 08:03> VTE Risk Level:: Surgical - low <Mary Anne Jacobsen PA-C - Last Filed: 03/12/22 08:03> VTE Device Contraindication: N/A - Device Ordered <Mary Anne Jacobsen PA-C - Last Filed: 03/12/22 08:03> VTE Drug Contraindication: Treatment Not Indicated <Mary Anne Jacobsen PA-C - Last Filed: 03/12/22 08:03>
--- NOTE | 2022-03-12 12:24 | P.CNID_ITS ---
History of Present Illness Data of Consult Service Date: 03/12/22 Requesting physician: Quinton Silva Primary Care Provider: EBENEZER Black Reason for consult: abdominal pain He presents with 710 lower abdominal pain radiating to epigastrium. He was hospitalized 03/03-03/05 for diverticultis presumed perforation and received three days IV Zosyn and then prescription for 10 days Augmentin. He took medication and was slightly better and then had worsening LLQ pain again on 03/10. He is started again on Zosyn and CT scan showed some collection but not enough to drain apparently. He is starting to feel better and on clears. Review of Systems Review of Systems: Yes all other systems are reviewed and are negative PMFSH Past Medical History Medical History Diverticulitis Family History Family history: reviewed and not pertinent Social History Social History Household Members: Spouse Housing: House Do you presently have visiting nurse or other home services: No Patient Tobacco Use Status: Never used Tobacco service: No Current occupational status: employed Meds Allergies Allergy/AdvReac Type Severity Reaction Status Date / Time No Known Allergies Allergy Verified 03/02/22 15:51 Active Medications: Current Medications Acetaminophen (Acetaminophen 325 Mg Tablet) 650 mg PO QID PRN PRN Reason: headache, temp > 101 Last Admin: 03/12/22 07:28 Dose: 650 mg Hydromorphone HCl (Hydromorphone Hcl 0.5 Mg/0.5 Ml Syringe) 0.5 mg IVPUSH Q3H PRN; Protocol PRN Reason: Pain, Severe (Pain Scale 7-10) Last Admin: 03/12/22 11:08 Dose: 0.5 mg Dextrose/Lactated Ringer's (D5lr) 1,000 mls @ 125 mls/hr IVCONT .Q8H MEGHANN Last Admin: 03/12/22 06:39 Dose: 125 mls/hr Piperacillin Sod/Tazobactam (Sod 3.375 gm/ Sodium Chloride) 50 mls @ 100 mls/hr IV Q6H MEGHANN Last Admin: 03/12/22 10:49 Dose: 100 mls/hr Ondansetron HCl (Ondansetron Hcl 4 Mg/2 Ml Vial) 4 mg IVPUSH QID PRN PRN Reason: Nausea Last Admin: 03/11/22 13:04 Dose: 4 mg Pharmacy Consult (Consult Rx Perform Med Rec) 1 each MISCELLANE ONCE PRN PRN Reason: Consult order Sodium Chloride (0.9 % Sodium Chloride Flush 3 Ml Syringe) 3 ml IVFLUSH QSHIFT [facility] Last Admin: 03/12/22 10:50 Dose: Not Given Zolpidem Tartrate (Zolpidem Tartrate 5 Mg Tablet) 5 mg PO BEDTIME PRN PRN Reason: Insomnia Home Medications Medication Instructions Recorded Confirmed Last Taken Type coenzyme Q10 75 mg capsule (Ultra 75 mg PO DAILY 03/02/22 03/11/22 03/10/22 History CoQ10) omega 9-exc-qeq-fish oil 100 1 cap PO DAILY 03/02/22 03/11/22 03/10/22 History mg-160 mg-1,000 mg capsule (Fish Oil) Physical Exam Vital Signs: Vital Signs: Last Vital Signs Temp 98.1 F 03/12/22 11:07 Pulse 93 03/12/22 11:07 Resp 18 03/12/22 11:07 BP 114/71 03/12/22 11:07 Pulse Ox 97 03/12/22 11:07 O2 Del Method 03/12/22 11:07 BMI result Body Mass Index 30.4 Const: General: cooperative HEENT: Head: Yes normal to inspection Face and sinus: Yes normal facial exam Mouth: Normal oral and palatal mucosa present Teeth and gingiva: dentition normal Eyes: General: appearance normal, both eyes and all related structures Pupils: Equal, round and reactive pupils present Resp: Effort & Inspection: normal respiratory effort Cardio: Rate: regular rate Rhythm: regular rhythm GI: Palpation (GI): Soft to palpation, Tenderness to palpation present (GI) in the LLQ and No hepatosplenomegaly present : General: Yes no CVA tenderness Back/Spine/Pelvis: Back: no CVA tenderness Skin: General skin exam: no rashes or lesions noted Neuro: General: moves all extremities Cranial nerves: Yes Equal, round and reactive pupils present Extrem: General: Yes normal to inspection Psych: Appearance: grossly normal Results Labs CBC & Chem 7: 03/12/22 05:19 03/11/22 03:13 Labs: Short CBC 03/12/22 Range/Units 05:19 WBC 13.5 H (4.8-10.8) X10*3/uL Hgb 12.6 L (14.0-18.0) g/dl Hct 38.0 L (42.0-52.0) % Plt Count 325 (160-400) X10*3/uL Microbiology Microbiology Results: Microbiology 03/11/22 03:13 Blood - Subclavian Blood Culture - Preliminary No growth after 24 hours. 03/11/22 03:13 Blood - Subclavian Blood Culture - Preliminary No growth after 24 hours. Assessment and Plan (1) Abdominal pain: Status: Acute (2) Diverticulitis: Status: Acute He has not improved despite standard of care treatment last week with IV antibiotics followed by oral transition. I dont think he has resistant organisms to piperacillin/tazobactam as it covers abdominal organisms but this is possible. It would be useful however if his fluid collection was enough to culture but it isnt large enough, Plan Give Vabomere (merepenem and vaborbactam) for five to seven days see if improves clinically and/or by CT scan abdomen. This would help if he had developed CRE organisms If not improved further surgical evaluation/colonoscopy
[2022-03-12] MEDS: ondansetron HCL 4 MG/2 ML VIAL IVPUSH ×2 (14:31→21:28)
[2022-03-13] VITALS: BP 116/59; PULSE 82; RESP 18; TEMP 36.6; O2SAT 96
[2022-03-13] MEDS: 0.9 % Sodium Chloride Flush 3 ML SYRINGE IVFLUSH (01:38)
[2022-03-13] MEDS: Acetaminophen 325 MG TABLET 650 MG PO ×3 (01:38→15:22)
[2022-03-13 05:59] LABS: MANUAL DIFF FLAG NO
[2022-03-13 06:23] LABS: Basophils Absolute Auto 0.1 X10*3/uL (0.0-0.2); Basophils Percent Auto 0.3 % (0-2); Eosinophils Absolute Auto 0.2 X10*3/uL (0.0-0.4); Hematocrit 36.9 % (42.0-52.0); Hemoglobin 12.1 g/dl (14.0-18.0); Imm Gran Pct Auto 0.7 % (0.0-0.4); Lymphocytes Absolute Auto 1.9 X10*3/uL (1.2-4.9); Lymphocytes Percent Auto 12.5 % (20-40); Mean Corpuscular HGB Conc 32.8 g/dl (31.0-36.0); Mean Corpuscular Hemoglobin 29.7 pg (27.0-33.0); Mean Corpuscular Volume 90.4 fL (80.0-98.0); Monocytes Absolute Auto 1.2 X10*3/uL (0.1-1.2); Monocytes Percent Auto 8.1 % (2-11); Neutrophils Absolute Auto 11.9 x10*3/uL (2.0-8.3); Neutrophils Percent Auto 77.4 % (45-73); Platelet Count 328 X10*3/uL (160-400); Red Blood Count 4.08 X10*6/uL (4.60-5.80); Red Cell Distribution Width 11.7 % (11.0-16.0); White Blood Count 15.3 X10*3/uL (4.8-10.8)
--- NOTE | 2022-03-13 07:40 | PC.NURSE ---
Patient alert and oriented and independent. IV Antibiotic and Pain management regimen as needed provided during shift, tolerated well. slept for a greater part of the night. No other complaints.
[2022-03-13 08:00] VITALS: BP 122/74; PULSE 88; RESP 20; TEMP 37.5; O2SAT 98
--- NOTE | 2022-03-13 08:11 | P.PNGS_ITS ---
Subjective Subjective Date of Service: 03/13/22 <Mary Anne Jacobsen PA-C - Last Filed: 03/13/22 08:17> 03/13/22 <Quinton Silva MD - Last Filed: 03/13/22 08:23> Interval history: Thinks his pain may be a little better but has had continued fevers with tylenol on board. Tolerating clear liquids. Passing flatus. <Mary Anne Jacobsen PA-C - Last Filed: 03/13/22 08:17> Physical Exam Vital Signs: Vital Signs: Last Vital Signs Temp 99.5 F 03/13/22 08:00 Pulse 88 03/13/22 08:00 Resp 20 03/13/22 08:00 BP 122/74 03/13/22 08:00 Pulse Ox 98 03/13/22 08:00 O2 Del Method 03/13/22 08:00 BMI result Body Mass Index 30.4 <Mary Anne Jacobsen PA-C - Last Filed: 03/13/22 08:17> Const: General: comfortable, no acute distress and alert <Mary Anne Jacobsen PA-C - Last Filed: 03/13/22 08:17> Orientation/consciousness: patient oriented x3 <GIANFRANCO Max Last Filed: 03/13/22 08:17> Resp: Effort & Inspection: normal respiratory effort <Mary Anne Jacobsen PA-C - Last Filed: 03/13/22 08:17> GI: Inspection: No distended <Mary Anne Jacobsen PA-C - Last Filed: 03/13/22 08:17> Palpation (GI): Soft to palpation, Tenderness to palpation present (GI) in the LLQ and suprapubicly, no guarding and not rigid <Mary Anne Jacobsen PA-C - Last Filed: 03/13/22 08:17> Percussion: Yes normal to percussion <GIANFRANCO Max Last Filed: 03/13/22 08:17> Skin: General skin exam: no rashes or lesions noted <GIANFRANCO Max Last Filed: 03/13/22 08:17> Neuro: General: patient oriented x3 <Mary Anne Jacobsen PA-C - Last Filed: 03/13/22 08:17> Objective Data Active Medications Acetaminophen (Acetaminophen 325 Mg Tablet) 650 mg PO QID PRN PRN Reason: headache, temp > 101 Last Admin: 03/13/22 01:38 Dose: 650 mg Documented By: GINETTE Hydromorphone HCl (Hydromorphone Hcl 0.5 Mg/0.5 Ml Syringe) 0.5 mg IVPUSH Q3H PRN; Protocol PRN Reason: Pain, Severe (Pain Scale 7-10) Last Admin: 03/12/22 21:28 Dose: 0.5 mg Documented By: GINETTE Dextrose/Lactated Ringer's (D5lr) 1,000 mls @ 125 mls/hr IVCONT .Q8H [facility] Last Admin: 03/13/22 05:14 Dose: Not Given Documented By: GINETTE Non-Admin Reason: IV bag still full Meropenem/Vaborbactam 4 gm/ (Sodium Chloride) 250 mls @ 83.333 mls/hr IV Q8H [facility] Stop: 03/19/22 13:59 Last Infusion: 03/13/22 06:29 Dose: 0 mls/hr Documented By: GINETTE Ondansetron HCl (Ondansetron Hcl 4 Mg/2 Ml Vial) 4 mg IVPUSH QID PRN PRN Reason: Nausea Last Admin: 03/12/22 21:28 Dose: 4 mg Documented By: GINETTE Pharmacy Consult (Consult Rx Perform Med Rec) 1 each MISCELLANE ONCE PRN PRN Reason: Consult order Sodium Chloride (0.9 % Sodium Chloride Flush 3 Ml Syringe) [facility] Last Admin: 03/13/22 01:38 Dose: 3 ml Documented By: GINETTE Zolpidem Tartrate (Zolpidem Tartrate 5 Mg Tablet) 5 mg PO BEDTIME PRN PRN Reason: Insomnia <GIANFRANCO Max Last Filed: 03/13/22 08:17> Labs CBC & Chem 7: : 03/13/22 05:38 03/11/22 03:13 <GIANFRANCO Max Last Filed: 03/13/22 08:17> Labs: Laboratory Results - last 24 hr 03/13/22 05:38 MCV 90.4 MCH 29.7 MCHC 32.8 RDW 11.7 Plt Count 328 MPV 10.0 Immature Gran % (Auto) 0.7 H Neut % (Auto) 77.4 H Lymph % (Auto) 12.5 L [place] % (Auto) 8.1 Eos % (Auto) 1.0 Baso % (Auto) 0.3 Lymph # (Auto) 1.9 [place] # (Auto) 1.2 Eos # (Auto) 0.2 Baso # (Auto) 0.1 Abs Immat Gran (auto) 0.10 H Absolute Neuts (auto) 11.9 H Absolute Nucleated RBC 0.000 Nucleated RBC % (auto) 0.0 <Mary Anne Jacobsen PA-C - Last Filed: 03/13/22 08:17> Microbiology Microbiology Results: Microbiology 03/11/22 03:13 Blood Culture - Preliminary Blood - Subclavian No growth after 48 hours. 03/11/22 03:13 Blood Culture - Preliminary Blood - Subclavian <Mary Anne Jacobsen PA-C - Last Filed: 03/13/22 08:17> Procedures Date of Service Date of Service: 03/13/22 <Mary Anne Jacobsen PA-C - Last Filed: 03/13/22 08:17> Progress Note: A&P Assessment and plan (1) Colonic diverticular abscess: Status: Acute <GIANFRANCO Max Last Filed: 03/13/22 08:17> Assessment and Plan: 36 year old male readmitted with diverticulitis with small abscess. Seen by ID yesterday and changed to IV meropenem/vaborbactam for 5 days. He feels somewhat improved however he continues with fevers and WBC count is rising. Will repeat CT scan today to reassess abscess and see if it is increased in size and amenable to IR drainage. Further plan dependent on CT scan. Patient comfortable with plan. He is overall well appearing and abd exam relatively unchanged. <GIANFRANCO Max Last Filed: 03/13/22 08:17> Time Spent With Patient Time: Total time spent is greater than 50% in coordination of care (as documented) at patient's floor/unit and/or counseling patient: <Mary Anne Jacobsen PA-C - Last Filed: 03/13/22 08:17> Quality Stroke Does the patient have a stroke diagnosis?: No <Mary Anne Jacobsen PA-C - Last Filed: 03/13/22 08:17> VTE Prior VTE?: No <Mary Anne Jacobsen PA-C - Last Filed: 03/13/22 08:17> VTE Risk Level:: Surgical - low <Mary Anne Jacobsen PA-C - Last Filed: 03/13/22 08:17> VTE Device Contraindication: N/A - Device Ordered <Mary Anne Jacobsen PA-C - Last Filed: 03/13/22 08:17> VTE Drug Contraindication: Treatment Not Indicated <Mary Anne Jacobsen PA-C - Last Filed: 03/13/22 08:17>
[2022-03-13] MEDS: Dextrose 5 % and Lactated Ring 1,000 ML 125 ML IVCONT (08:55)
[2022-03-13] MEDS: iohexoL 350 MG/ML 100 ML INFUS..BTL IV (11:47)
--- NOTE | 2022-03-13 14:46 | MHC.CM.PN ---
EMR REVIEWED, PER SURGICAL, PAIN MILDLY IMPROVED, FEBRILE W/TYLENOL, PT TOLERATING CLEAR LIQUIDS AND PASSING FLATTUS, PT NOT READY FOR D/C AT THIS TIME, CM WILL CONT TO FOLLOW D/C NEEDS.
[2022-03-13 15:43] VITALS: BP 108/71; PULSE 89; RESP 20; TEMP 37.2; O2SAT 97
[2022-03-13 23:39] VITALS: BP 120/76; PULSE 85; RESP 18; TEMP 37.2; O2SAT 99
[2022-03-14] MEDS: 0.9 % Sodium Chloride Flush 3 ML SYRINGE IVFLUSH ×3 (00:41→19:51)
[2022-03-14] MEDS: Acetaminophen 325 MG TABLET 650 MG PO (03:16)
[2022-03-14 03:17] VITALS: TEMP 38.4
[2022-03-14 05:28] LABS: Hematocrit 34.8 % (42.0-52.0); Hemoglobin 11.7 g/dl (14.0-18.0); Mean Corpuscular HGB Conc 33.6 g/dl (31.0-36.0); Mean Corpuscular Hemoglobin 30.2 pg (27.0-33.0); Mean Corpuscular Volume 89.9 fL (80.0-98.0); Mean Platelet Volume 9.7 fL (9.4-12.4); Platelet Count 316 X10*3/uL (160-400); Red Blood Count 3.87 X10*6/uL (4.60-5.80); Red Cell Distribution Width 11.7 % (11.0-16.0); White Blood Count 10.6 X10*3/uL (4.8-10.8)
[2022-03-14 08:00] VITALS: BP 131/77; PULSE 72; RESP 18; TEMP 36.7; O2SAT 98
--- NOTE | 2022-03-14 11:53 | P.PNGS_ITS ---
Subjective Subjective Date of Service: 03/14/22 Interval history: had a fever last night to 101 with sweats but this morning feels much better, tolerating po diet and not much pain. having bowel movements. Physical Exam Vital Signs: Vital Signs: Last Vital Signs Temp 98.0 F 03/14/22 08:00 Pulse 72 03/14/22 08:00 Resp 18 03/14/22 08:00 BP 131/77 03/14/22 08:00 Pulse Ox 98 03/14/22 08:00 O2 Del Method 03/14/22 08:00 BMI result Body Mass Index 30.4 Const: General: cooperative and healthy appearing Orientation/ consciousness: patient oriented x3 Resp: Auscultation: clear to auscultation bilaterally Cardio: Rate: regular rate Rhythm: regular rhythm GI: Other: soft mild tenderness to deep palpation in left lower quad no guarding no rebound Skin: General skin exam: no rashes or lesions noted Neuro: General: patient oriented x3 Extrem: General: Yes normal to inspection Objective Data Active Medications Acetaminophen (Acetaminophen 325 Mg Tablet) 650 mg PO QID PRN PRN Reason: headache, temp > 101 Last Admin: 03/14/22 03:16 Dose: 650 mg Documented By: GINETTE Hydromorphone HCl (Hydromorphone Hcl 0.5 Mg/0.5 Ml Syringe) 0.5 mg IVPUSH Q3H PRN; Protocol PRN Reason: Pain, Severe (Pain Scale 7-10) Last Admin: 03/12/22 21:28 Dose: 0.5 mg Documented By: GINETTE Meropenem/Vaborbactam 4 gm/ (Sodium Chloride) 250 mls @ 83.333 mls/hr IV Q8H [facility] Stop: 03/19/22 13:59 Last Infusion: 03/14/22 06:00 Dose: 0 mls/hr Documented By: GINETTE Ondansetron HCl (Ondansetron Hcl 4 Mg/2 Ml Vial) 4 mg IVPUSH QID PRN PRN Reason: Nausea Last Admin: 03/12/22 21:28 Dose: 4 mg Documented By: GINETTE Pharmacy Consult (Consult Rx Perform Med Rec) 1 each MISCELLANE ONCE PRN PRN Reason: Consult order Sodium Chloride (0.9 % Sodium Chloride Flush 3 Ml Syringe) 3 ml IVFLUSH QSHIFT [facility] Last Admin: 03/14/22 09:19 Dose: 3 ml Documented By: MATHIEU Zolpidem Tartrate (Zolpidem Tartrate 5 Mg Tablet) 5 mg PO BEDTIME PRN PRN Reason: Insomnia Labs CBC & Chem 7: 03/14/22 05:08 03/11/22 03:13 Labs: Laboratory Results - last 24 hr 03/14/22 05:08 MCV 89.9 MCH 30.2 MCHC 33.6 RDW 11.7 Plt Count 316 MPV 9.7 Absolute Nucleated RBC 0.000 Nucleated RBC % (auto) 0.0 Microbiology Microbiology Results: Microbiology 03/11/22 03:13 Blood Culture - Preliminary Blood - Subclavian No growth after 48 hours. Procedures Date of Service Date of Service: 03/14/22 Progress Note: A&P Assessment and plan (1) Colonic diverticular abscess: Status: Acute Assessment and Plan: 36 year old male with diverticulitis with small abscess doing better, less tneder and wbc normal today. still with temp spikes and sweats. plan to cont with light po diet, iv antibx, stool softeners, decrease narcotic pain meds, ambulate. pt asking for probiotics but we have none here in hospital. pt cont to improve with conservative care but would like to see at heat 48 hrs without spik ing temp before change to po antibx and dc home. he agrees with plan Time Spent With Patient Time: Total time spent is greater than 50% in coordination of care (as documented) at patient's floor/unit and/or counseling patient: Quality Stroke Does the patient have a stroke diagnosis?: No VTE Prior VTE?: No VTE Risk Level:: Surgical - low VTE Device Contraindication: N/A - Device Ordered VTE Drug Contraindication: Treatment Not Indicated
[2022-03-14 15:12] VITALS: BP 112/74; PULSE 80; RESP 18; TEMP 36.7; O2SAT 98
[2022-03-14] MEDS: Docusate Sodium 100 MG CAPSULE PO (19:51)
[2022-03-14 20:00] VITALS: BP 117/77; PULSE 85; RESP 18; TEMP 37.4; O2SAT 97
[2022-03-14 23:52] VITALS: BP 114/66; PULSE 80; RESP 14; TEMP 37; O2SAT 97
[2022-03-15 03:07] VITALS: BP 120/73; PULSE 75; RESP 14; TEMP 36.2; O2SAT 96
[2022-03-15 05:38] LABS: Baso%MD 0.7 %; Hematocrit 37.2 % (42.0-52.0); Hemoglobin 12.2 g/dl (14.0-18.0); IG%MD 0.6 %; Lymph%MD 21.7 %; Mean Corpuscular HGB Conc 32.8 g/dl (31.0-36.0); Mean Corpuscular Hemoglobin 29.2 pg (27.0-33.0); Mean Platelet Volume 9.5 fL (9.4-12.4); Mono%MD 7.1 %; Neut%MD 66.9 %; Platelet Count 374 X10*3/uL (160-400); Red Blood Count 4.18 X10*6/uL (4.60-5.80); Red Cell Distribution Width 11.7 % (11.0-16.0); White Blood Count 8.6 X10*3/uL (4.8-10.8)
--- NOTE | 2022-03-15 06:15 | PC.NURSE ---
Noted with redness and warmth on the left antecub and right forearm from previous IVLines, area was outlined.
[2022-03-15 06:45] LABS: Band Neutrophils Percent 2 % (3-5); Eosinophils Absolute Manual 0.3 X10*3/uL (0.0-0.4); Eosinophils Percent Manual 3 % (0-4); Large Platelet PRESENT; Lymphocytes Absolute Manual 1.6 X10*3/uL (1.2-4.9); Lymphocytes Percent Manual 19 % (20-40); Monocytes Absolute Manual 0.5 X10*3/uL (0.1-1.2); Monocytes Percent Manual 6 % (2-11); Neutrophils Absolute Manual 6.2 X10*3/uL (2.0-8.3); Neutrophils Percent Manual 70 % (45-73); Platelet Estimate SLIGHTLY INCREASED (NORMAL); RBC Morphology NORMAL; Smudge Cells PRESENT
[2022-03-15 07:22] VITALS: BP 104/59; PULSE 78; RESP 18; TEMP 37.4; O2SAT 97
[2022-03-15] MEDS: Docusate Sodium 100 MG CAPSULE PO ×2 (07:28→21:19)
[2022-03-15] MEDS: 0.9 % Sodium Chloride Flush 3 ML SYRINGE IVFLUSH ×2 (07:29→21:21)
[2022-03-15 09:28] LABS: Platelet Morphology Comment NOTED
[2022-03-15 12:00] VITALS: BP 112/69; PULSE 77; RESP 16; TEMP 5429.4; TEMP 9805; O2SAT 95
--- NOTE | 2022-03-15 13:47 | P.PNGS_ITS ---
Subjective Subjective Date of Service: 03/15/22 Interval history: Patient generally is doing well from an abdominal perspective and has not had a temperature of significant since 2 nights ago. Last night he did have some chills and sweats but not as much is an I prior. His white blood count continues to look good in normal. His main complaint is is bilateral arms where there is swelling and erythema secondary to infiltration a 5 ease. He currently has a IV in his right hand which looks like it doing okay. He has been tolerating p.o. diet without any new abdominal pain having good bowel movements. Not much pain on palpation or tenderness and no nausea or vomiting. Physical Exam Vital Signs: Vital Signs: Last Vital Signs Temp 9805 F H 03/15/22 12:00 Pulse 77 03/15/22 12:00 Resp 16 03/15/22 12:00 BP 112/69 03/15/22 12:00 Pulse Ox 95 03/15/22 12:00 O2 Del Method 03/15/22 12:00 BMI result Body Mass Index 30.4 Const: General: cooperative, healthy appearing, comfortable and no acute distress Orientation/consciousness: patient oriented x3 Resp: Effort & Inspection: normal respiratory effort Auscultation: clear to auscultation bilaterally Cardio: Rate: regular rate Rhythm: regular rhythm GI: Other: his abdomen is soft nondistended mild tenderness to deep palpation in the left lower quadrant no guarding no rebound no peritoneal signs active bowel sounds Skin: Other: on both arms the med area there is some erythema and induration where there has been of the last several days infiltration office IV and leakage. No evidence of true cellulitis. The areas are mildly tender. Neuro: General: patient oriented x3 Cranial nerves: Yes CN's II-XII intact bilaterally Psych: Appearance: grossly normal Mental Status: mental status grossly normal Speech and movement: Normal speech and movement present Affect: normal affect Attitude: cooperative Thought process: Normal thought process present Thought content: Normal thought content present Insight: Good insight present (Psych) Judgement: Good judgement present (Psych) Objective Data Active Medications Acetaminophen (Acetaminophen 325 Mg Tablet) 650 mg PO QID PRN PRN Reason: headache, temp > 101 Last Admin: 03/14/22 03:16 Dose: 650 mg Documented By: GINETTE Docusate Sodium (Docusate Sodium 100 Mg Capsule) 100 mg PO BID [facility] Last Admin: 03/15/22 07:28 Dose: 100 mg Documented By: HUSAM Hydromorphone HCl (Hydromorphone Hcl 0.5 Mg/0.5 Ml Syringe) 0.5 mg IVPUSH Q3H PRN; Protocol PRN Reason: Pain, Severe (Pain Scale 7-10) Last Admin: 03/12/22 21:28 Dose: 0.5 mg Documented By: GINETTE Meropenem/Vaborbactam 4 gm/ (Sodium Chloride) 250 mls @ 83.333 mls/hr IV Q8H [facility] Stop: 03/19/22 13:59 Last Admin: 03/15/22 10:32 Dose: 83.33 mls/hr Documented By: HUSAM Ondansetron HCl (Ondansetron Hcl 4 Mg/2 Ml Vial) 4 mg IVPUSH QID PRN PRN Reason: Nausea Last Admin: 03/12/22 21:28 Dose: 4 mg Documented By: GINETTE Pharmacy Consult (Consult Rx Perform Med Rec) 1 each MISCELLANE ONCE PRN PRN Reason: Consult order Sodium Chloride (0.9 % Sodium Chloride Flush 3 Ml Syringe) 3 ml IVFLUSH QSHIFT [facility] Last Admin: 03/15/22 07:29 Dose: 3 ml Documented By: HUSAM Zolpidem Tartrate (Zolpidem Tartrate 5 Mg Tablet) 5 mg PO BEDTIME PRN PRN Reason: Insomnia Labs CBC & Chem 7: 03/15/22 05:10 03/11/22 03:13 Labs: Laboratory Results - last 24 hr 03/15/22 05:10 MCV 89.0 MCH 29.2 MCHC 32.8 RDW 11.7 Plt Count 374 MPV 9.5 Absolute Nucleated RBC 0.000 Nucleated RBC % (auto) 0.0 Neutrophils % (Manual) 70 Band Neutrophils % 2 L Lymphocytes % (Manual) 19 L Monocytes % (Manual) 6 Eosinophils % (Manual) 3 Abs Neuts (Manual) 6.2 Lymphocytes # (Manual) 1.6 Monocytes # (Manual) 0.5 Eosinophils # (Manual) 0.3 Smudge Cells PRESENT Platelet Estimate SLIGHTLY INCREASED Large Platelets PRESENT Plt Morphology Comment NOTED RBC Morphology NORMAL Microbiology Microbiology Results: Microbiology 03/11/22 03:13 Blood Culture - Preliminary Blood - Subclavian No growth after 48 hours. Procedures Date of Service Date of Service: 03/15/22 Progress Note: A&P Assessment and plan (1) Colonic diverticular abscess: Status: Acute Assessment and Plan: The patient is a 36-year-old male who was admitted for diverticulitis and treated with IV antibiotics and then discharged home on p.o. antibiotics unfortunately worsened and is returned for treatment in CT scan several days ago showing anti vertical or abscess this not amenable to drainage. The patient has been treated with IV antibiotics and conservative measurements and seems to be doing better. He is definitely less tender we can is now normal he has town now 36 hours without any significant temperature. Planus a continue the IV antibiotics as directed by Infectious Diseases and see what our recommendation for converting him to p.o. is. He asked me if he may need another CT scan of his abdomen pelvis and we will discuss at with the other members of the surgical team as well as infectious Diseases. Clinically right now it seems like is doing better since he has not tender afebrile white count is normal and he has already had 3 CT scans in a relatively short Time. Continue ambulation and supportive care 10 his arms for the infiltration. Consider trying a little better trial and will did us tonight so that he does not become sleepy during the day. This is as per his request Time Spent With Patient Time: Total time spent is greater than 50% in coordination of care (as documented) at patient's floor/unit and/or counseling patient: Quality Stroke Does the patient have a stroke diagnosis?: No VTE Prior VTE?: No VTE Risk Level:: Surgical - low VTE Device Contraindication: N/A - Device Ordered VTE Drug Contraindication: Treatment Not Indicated
[2022-03-15 15:08] VITALS: BP 116/66; PULSE 82; RESP 18; TEMP 37.1; O2SAT 98
[2022-03-15 19:27] VITALS: BP 107/70; PULSE 89; RESP 18; TEMP 36.7; O2SAT 99
[2022-03-15] MEDS: diphenhydrAMINE HCL 25 MG CAPSULE PO (21:30)
[2022-03-16] VITALS: BP 118/75; PULSE 77; RESP 18; TEMP 36.5; O2SAT 97
[2022-03-16 03:53] VITALS: BP 95/56; PULSE 67; RESP 18; TEMP 36.4; O2SAT 98
[2022-03-16 05:41] LABS: MANUAL DIFF FLAG NO
[2022-03-16 05:45] LABS: Basophils Absolute Auto 0.1 X10*3/uL (0.0-0.2); Basophils Percent Auto 0.7 % (0-2); Eosinophils Absolute Auto 0.3 X10*3/uL (0.0-0.4); Eosinophils Percent Auto 3.1 % (0-4); Hematocrit 38.4 % (42.0-52.0); Hemoglobin 12.9 g/dl (14.0-18.0); Imm Gran Abs Auto 0.05 X10*3/uL (0.00-0.03); Imm Gran Pct Auto 0.6 % (0.0-0.4); Lymphocytes Absolute Auto 1.9 X10*3/uL (1.2-4.9); Lymphocytes Percent Auto 22.7 % (20-40); Mean Corpuscular HGB Conc 33.6 g/dl (31.0-36.0); Mean Corpuscular Hemoglobin 30.1 pg (27.0-33.0); Mean Corpuscular Volume 89.5 fL (80.0-98.0); Mean Platelet Volume 9.7 fL (9.4-12.4); Monocytes Absolute Auto 0.6 X10*3/uL (0.1-1.2); Monocytes Percent Auto 7.6 % (2-11); Neutrophils Absolute Auto 5.5 x10*3/uL (2.0-8.3); Neutrophils Percent Auto 65.3 % (45-73); Platelet Count 408 X10*3/uL (160-400); Red Blood Count 4.29 X10*6/uL (4.60-5.80); Red Cell Distribution Width 11.9 % (11.0-16.0); White Blood Count 8.4 X10*3/uL (4.8-10.8)
[2022-03-16] MEDS: 0.9 % Sodium Chloride Flush 3 ML SYRINGE IVFLUSH ×2 (07:47→22:40)
[2022-03-16 07:48] VITALS: BP 105/60; PULSE 76; RESP 18; TEMP 36.2; O2SAT 97
[2022-03-16] MEDS: Docusate Sodium 100 MG CAPSULE PO ×2 (07:50→22:27)
--- NOTE | 2022-03-16 09:00 | PM.PNGS ---
Subjective Subjective Date of Service: 03/16/22 <Mary Anne Jacobsen PA-C - Last Filed: 03/16/22 09:05> 03/16/22 <Jassi Barney MD - Last Filed: 03/16/22 09:55> Interval history: No events over the weekend. His pain has improved and completely resolved. He is tolerating a solid diet and moving his bowels without difficulty. Feels overall well. <Mary Anne Jacobsen PA-C - Last Filed: 03/16/22 09:05> Physical Exam Vital Signs: Vital Signs: Last Vital Signs Temp 97.1 F 03/16/22 07:48 Pulse 76 03/16/22 07:48 Resp 18 03/16/22 07:48 BP 105/60 03/16/22 07:48 Pulse Ox 97 03/16/22 07:48 O2 Del Method 03/16/22 07:48 BMI result Body Mass Index 30.4 <Mary Anne Jacobsen PA-C - Last Filed: 03/16/22 09:05> Const: General: comfortable, no acute distress, well developed and alert <Mary Anne Jacobsen PA-C - Last Filed: 03/16/22 09:05> Orientation/consciousness: patient oriented x3 <GIANFRANCO Max Last Filed: 03/16/22 09:05> Resp: Effort & Inspection: normal respiratory effort <Mary Anne Jacobsen PA-C - Last Filed: 03/16/22 09:05> GI: Inspection: No distended <Mary Anne Jacobsen PA-C - Last Filed: 03/16/22 09:05> Palpation (GI): Soft to palpation, Tenderness to palpation present (GI) (very mild pinpoint tenderness to deep palpation in the LLQ), no guarding and not rigid <GIANFRANCO Max Last Filed: 03/16/22 09:05> Skin: General skin exam: no rashes or lesions noted <GIANFRANCO Max Last Filed: 03/16/22 09:05> Neuro: General: patient oriented x3 <GIANFRANCO Max Last Filed: 03/16/22 09:05> Extrem: General: Yes no clubbing, cyanosis or edema <GIANFRANCO Max Last Filed: 03/16/22 09:05> Objective Data Active Medications Acetaminophen (Acetaminophen 325 Mg Tablet) 650 mg PO QID PRN PRN Reason: headache, temp > 101 Last Admin: 03/14/22 03:16 Dose: 650 mg Documented By: GINETTE Diphenhydramine HCl (Diphenhydramine Hcl 25 Mg Capsule) 25 mg PO ONCE [facility] Last Admin: 03/15/22 21:30 Dose: 25 mg Documented By: MALLORIE Docusate Sodium (Docusate Sodium 100 Mg Capsule) 100 mg PO BID [facility] Last Admin: 03/16/22 07:50 Dose: 100 mg Documented By: SAI Hydromorphone HCl (Hydromorphone Hcl 0.5 Mg/0.5 Ml Syringe) 0.5 mg IVPUSH Q3H PRN; Protocol PRN Reason: Pain, Severe (Pain Scale 7-10) Last Admin: 03/12/22 21:28 Dose: 0.5 mg Documented By: GINETTE Meropenem/Vaborbactam 4 gm/ (Sodium Chloride) 250 mls @ 83.333 mls/hr IV Q8H [facility] Stop: 03/19/22 13:59 Last Infusion: 03/16/22 07:52 Dose: 0 mls/hr Documented By: SAI Ondansetron HCl (Ondansetron Hcl 4 Mg/2 Ml Vial) 4 mg IVPUSH QID PRN PRN Reason: Nausea Last Admin: 03/12/22 21:28 Dose: 4 mg Documented By: GINETTE Pharmacy Consult (Consult Rx Perform Med Rec) 1 each MISCELLANE ONCE PRN PRN Reason: Consult order Sodium Chloride (0.9 % Sodium Chloride Flush 3 Ml Sy[facility]) [facility] Last Admin: 03/16/22 07:47 Dose: 3 ml Documented By: SAI <GIANFRANCO Max Last Filed: 03/16/22 09:05> Labs CBC & Chem 7: : 03/16/22 05:10 03/11/22 03:13 <GIANFRANCO Max Last Filed: 03/16/22 09:05> Labs: Laboratory Results - last 24 hr 03/15/22 03/16/22 05:10 05:10 MCV 89.5 MCH 30.1 MCHC 33.6 RDW 11.9 Plt Count 408 H MPV 9.7 Immature Gran % (Auto) 0.6 H Neut % (Auto) 65.3 Lymph % (Auto) 22.7 [place] % (Auto) 7.6 Eos % (Auto) 3.1 Baso % (Auto) 0.7 Lymph # (Auto) 1.9 [place] # (Auto) 0.6 Eos # (Auto) 0.3 Baso # (Auto) 0.1 Abs Immat Gran (auto) 0.05 H Absolute Neuts (auto) 5.5 Absolute Nucleated RBC 0.000 Nucleated RBC % (auto) 0.0 Plt Morphology Comment NOTED <Mary Anne Jacobsen PA-C - Last Filed: 03/16/22 09:05> Microbiology Microbiology Results: Microbiology 03/11/22 03:13 Blood Culture - Final Blood - Subclavian No growth after 5 days. 03/11/22 03:13 Blood Culture - Final Blood - Subclavian No growth after 5 days. <Mary Anne Jacobsen PA-C - Last Filed: 03/16/22 09:05> Procedures Date of Service Date of Service: 03/16/22 <Mary Anne Jacobsen PA-C - Last Filed: 03/16/22 09:05> Progress Note: A&P Assessment and plan (1) Colonic diverticular abscess: Status: Acute <Mary Anne Jacobsen PA-C - Last Filed: 03/16/22 09:05> Assessment and Plan: Feels much better Very minimal pain if at all Looks well No fever Good GI functions IV antibiotics to complete 5 days as per ID Abdomen soft and benign Seen and examined independently - agree with LUCIO Jacobsen <Jassi Barney MD - Last Filed: 03/16/22 09:55> Assessment and Plan: 36 year old male readmitted with diverticulitis with small abscess. Seen by ID started on IV meropenem/vaborbactam for 5 days, on day 4. Was spiking fevers and repeat CT scan 03/13 showed slight increase in abscess size. He however has had resolution of symptoms and now has a normal WBC count without any fevers >24hrs. Abd exam much improved with only mild pinpoint LLQ tenderness. Will continue IV abx for 1 more day as per ID recs. Will discuss with ID transition to PO abx. Patient comfortable with plan. <Mary Anne Jacobsen PA-C - Last Filed: 03/16/22 09:05> Time Spent With Patient Time: Total time spent is greater than 50% in coordination of care (as documented) at patient's floor/unit and/or counseling patient: <Mary Anne Jacobsen PA-C - Last Filed: 03/16/22 09:05> Quality Stroke Does the patient have a stroke diagnosis?: No <Mary Anne Jacobsen PA-C - Last Filed: 03/16/22 09:05> VTE Prior VTE?: No <Mary Anne Jacobsen PA-C - Last Filed: 03/16/22 09:05> VTE Risk Level:: Surgical - low <Mary Anne Jacobsen PA-C - Last Filed: 03/16/22 09:05> VTE Device Contraindication: N/A - Device Ordered <Mary Anne Jacobsen PA-C - Last Filed: 03/16/22 09:05> VTE Drug Contraindication: Treatment Not Indicated <Mary Anne Jacobsen PA-C - Last Filed: 03/16/22 09:05>
[2022-03-16 11:14] VITALS: BP 112/73; PULSE 83; RESP 18; TEMP 36.4; O2SAT 97
--- NOTE | 2022-03-16 11:45 | P.CDIC_ITS ---
CDI Concurrent Query Documentation Clarification: PHYSICIAN'S DOCUMENTATION REQUEST Date of Query: 03/16/22 1146 Patient Name: Salomon Gunderson Admit Date: 03/11/22 Dear Doctor, A review of the medical record indicates additional documentation may be needed. Please review below and update the documentation accordingly. Clinical Indicators: Is there a diagnosis that correlates with the findings below. The patient's infectious clinical indicators include: Risk Factors/Clinical Indicators/Treatments POA/RESOLVED/TREAT/RULE OUT LABS & VITALS: WBC on 03/13: 15.3 TEMP on 03/12: 101.7 TEMP on 03/14: 101.1 HR on 03/12: 104 Per infectious disease consult on 03/12: received three days IV Zosyn Patient was found to have elevated WBC and CT showing increasing sigmoid inflammation at the previous region of diverticulitis now with an abscess Recognized standard criteria for this condition and other infectious definitions includes: Sepsis Systemic manifestations of infection, with 2 or more SIRS criteria which include: * Fever > 100.4?F or hypothermia < 96.8?F * Leukocytosis ? WBC > 12,000 or leukopenia, WBC < 4,000, or > 10% bands * Tachycardia- > 90 beats/minute * Tachypnea- RR > 20 breaths/minute or PaCO2 < 32mmHg Source: Merck Manual 2013 Documentation should include the known or suspected organism, and the underlying infection, such as UTI or pneumonia Severe Sepsis Sepsis with associated acute organ dysfunction, such as renal or respiratory failure Documentation should indicate the association between the sepsis and the organ dysfunction Septic Shock Severe sepsis with associated with circulatory failure, evidenced by hypotension and hypoperfusion Based on the above information and the recognized standard for sepsis, could you please clarify in the Progress Notes if this diagnoses is still accurate and reflective of the patient's condition to ensure quality of the medical record. * Sepsis is/was present and is a clinical diagnosis based on (please include this additional support in the medical record) * After study (the condition) has been ruled out * Other (please specify) * Unable to determine Use of terms such as suspected, likely, concern for, or probable (associated with a specific diagnosis that is being evaluated, monitored, or treated as if it exists) are acceptable and can be coded in the inpatient setting, when doc umented at the time of discharge. Thank you, Ashlie Bianchi MS, RN, CCRN Extension: [phone] Please use your independent medical judgment in providing your response. THIS QUERY IS PART OF THE PERMANENT MEDICAL RECORD Provider Response: Sepsis (based on Temp > 100, WBC > 15, and HR > 100)
[2022-03-16 15:39] VITALS: BP 122/80; PULSE 86; RESP 16; TEMP 36.9; O2SAT 97
[2022-03-16 19:25] VITALS: BP 124/75; PULSE 89; RESP 17; TEMP 36.6; O2SAT 98
[2022-03-16] MEDS: diphenhydrAMINE HCL 25 MG CAPSULE PO (22:34)
--- NOTE | 2022-03-16 22:59 | P.PNID_ITS ---
Subjective Subjective Date of Service: 03/16/22 Critical Care Time (minutes): 15 Comment: he feels about 70% better Objective Data Labs CBC & Chem 7: 03/16/22 05:10 03/11/22 03:13 Labs: Laboratory Results - last 24 hr 03/16/22 05:10 WBC 8.4 RBC 4.29 L Hgb 12.9 L Hct 38.4 L MCV 89.5 MCH 30.1 MCHC 33.6 RDW 11.9 Plt Count 408 H MPV 9.7 Immature Gran % (Auto) 0.6 H Neut % (Auto) 65.3 Lymph % (Auto) 22.7 [place] % (Auto) 7.6 Eos % (Auto) 3.1 Baso % (Auto) 0.7 Lymph # (Auto) 1.9 [place] # (Auto) 0.6 Eos # (Auto) 0.3 Baso # (Auto) 0.1 Abs Immat Gran (auto) 0.05 H Absolute Neuts (auto) 5.5 Absolute Nucleated RBC 0.000 Nucleated RBC % (auto) 0.0 Microbiology Microbiology Results: Microbiology 03/11/22 03:13 Blood - Subclavian Blood Culture - Final No growth after 5 days. 03/11/22 03:13 Blood - Subclavian Blood Culture - Final No growth after 5 days. Physical Exam Vital Signs: Vital Signs: Last Vital Signs Temp 97.9 F 03/16/22 19:25 Pulse 89 03/16/22 19:25 Resp 17 03/16/22 19:25 BP 124/75 03/16/22 19:25 Pulse Ox 98 03/16/22 19:25 O2 Del Method 03/16/22 19:25 BMI result Body Mass Index 30.4 Const: General: cooperative HEENT: Head: Yes normal to inspection Mouth: Normal oral and palatal mucosa present Resp: Effort & Inspection: normal respiratory effort Cardio: Rate: regular rate Rhythm: regular rhythm GI: Palpation (GI): Soft to palpation and nontender Assessment and Plan Assessment and plan (1) Abdominal pain: Problem details: He feels better on day 4 Zerbaxa Status: Acute Assessment and Plan: Finish antibiotic IV Wednesday evening and then one week Augmentin. Follow up with Surgery as outpatient ( patient agrees) (2) Diverticulitis: Status: Acute (3) Colonic diverticular abscess: Status: Acute Time Spent With Patient Time: Total time spent is greater than 50% in coordination of care (as documented) at patient's floor/unit and/or counseling patient:
[2022-03-17] VITALS (7 sets, daily range): BP systolic 93–126; BP diastolic 51–77; PULSE 71–86; RESP 16–18; TEMP 36.3–37.2; O2SAT 95–99
[2022-03-17] MEDS: Docusate Sodium 100 MG CAPSULE PO ×2 (08:44→21:05)
--- NOTE | 2022-03-17 09:49 | P.PNGS_ITS ---
Subjective Subjective Date of Service: 03/17/22 <Mary Anne Jacobsen PA-C - Last Filed: 03/17/22 09:52> 03/17/22 <Jassi Barney MD - Last Filed: 03/17/22 12:46> Interval history: Denies pain. Continues with flatus, BM. <Mary Anne Jacobsen PA-C - Last Filed: 03/17/22 09:52> Physical Exam Vital Signs: Vital Signs: Last Vital Signs Temp 97.7 F 03/17/22 07:26 Pulse 73 03/17/22 07:26 Resp 18 03/17/22 07:26 BP 118/77 03/17/22 07:26 Pulse Ox 98 03/17/22 07:26 O2 Del Method 03/17/22 07:26 BMI result Body Mass Index 30.4 <Mary Anne Jacobsen PA-C - Last Filed: 03/17/22 09:52> Const: General: comfortable, no acute distress and alert <Mary Anne harrison PA-C - Last Filed: 03/17/22 09:52> Orientation/consciousness: patient oriented x3 <Mary Anne Jacobsen PA-C - Last Filed: 03/17/22 09:52> GI: Inspection: No distended <Mary Anne Jacobsen PA-C - Last Filed: 03/17/22 09:52> Palpation (GI): Soft to palpation, nontender, no guarding and not rigid <Mary Anne Jacobsen PA-C - Last Filed: 03/17/22 09:52> Skin: General skin exam: no rashes or lesions noted <Mary Anne Jacobsen PA-C - Last Filed: 03/17/22 09:52> Neuro: General: patient oriented x3 <GIANFRANCO Max Last Filed: 03/17/22 09:52> Extrem: General: Yes no clubbing, cyanosis or edema <Mary Anne Jacobsen PA-C - Last Filed: 03/17/22 09:52> Objective Data Active Medications Acetaminophen (Acetaminophen 325 Mg Tablet) 650 mg PO QID PRN PRN Reason: headache, temp > 101 Last Admin: 03/14/22 03:16 Dose: 650 mg Documented By: GINETTE Diphenhydramine HCl (Diphenhydramine Hcl 25 Mg Capsule) 25 mg PO ONCE [facility] Last Admin: 03/16/22 22:34 Dose: 25 mg Documented By: DAVIDORALB Docusate Sodium (Docusate Sodium 100 Mg Capsule) 100 mg PO BID [facility] Last Admin: 03/17/22 08:44 Dose: 100 mg Documented By: QUE Hydromorphone HCl (Hydromorphone Hcl 0.5 Mg/0.5 Ml Syringe) 0.5 mg IVPUSH Q3H PRN; Protocol PRN Reason: Pain, Severe (Pain Scale 7-10) Last Admin: 03/12/22 21:28 Dose: 0.5 mg Documented By: GINETTE Meropenem/Vaborbactam 4 gm/ (Sodium Chloride) 250 mls @ 83.333 mls/hr IV Q8H [facility] Stop: 03/19/22 16:59 Last Infusion: 03/17/22 09:40 Dose: 0 mls/hr Documented By: QUE Ondansetron HCl (Ondansetron Hcl 4 Mg/2 Ml Vial) 4 mg IVPUSH QID PRN PRN Reason: Nausea Last Admin: 03/12/22 21:28 Dose: 4 mg Documented By: GINETTE Pharmacy Consult (Consult Rx Perform Med Rec) 1 each MISCELLANE ONCE PRN PRN Reason: Consult order Sodium Chloride (0.9 % Sodium Chloride Flush 3 Ml Syringe) 3 ml IVFLUSH QSHIFT [facility] Last Admin: 03/17/22 07:08 Dose: Not Given Documented By: QUE Non-Admin Reason: IV Running <Mary Anne Jacobsen PA-C - Last Filed: 03/17/22 09:52> Labs CBC & Chem 7: : 03/16/22 05:10 03/11/22 03:13 <Mary Anne Jacobsen PA-C - Last Filed: 03/17/22 09:52> Microbiology Microbiology Results: Microbiology 03/11/22 03:13 Blood Culture - Final Blood - Subclavian No growth after 5 days. 03/11/22 03:13 Blood Culture - Final Blood - Subclavian No growth after 5 days. <Mary Anne Jacobsen PA-C - Last Filed: 03/17/22 09:52> Procedures Date of Service Date of Service: 03/17/22 <Mary Anne Jacobsen PA-C - Last Filed: 03/17/22 09:52> Progress Note: A&P Assessment and plan (1) Colonic diverticular abscess: Status: Acute <Mary Anne Jacobsen PA-C - Last Filed: 03/17/22 09:52> Assessment and Plan: feels well denies abdl pain or tenderness looks well to complete course of meropenem/vaborbactam doing well seen and examined - agree with LUCIO Jacobsen <Jassi Barney MD - Last Filed: 03/17/22 12:46> Assessment and Plan: 36 year old male readmitted with diverticulitis with small abscess. Seen by ID started on IV meropenem/vaborbactam for 5 days, on day 5. Was spiking feve rs and repeat CT scan 03/13 showed slight increase in abscess size. He however has had resolution of symptoms and now has a normal WBC count without any fevers >48hrs. Abd exam remains benign with no tenderness or peritoneal signs. ID reevaluated and recommends Vabomere 7 days IV. Therefore remains inpatient for IV abx. Patient comfortable with plan. <Mary Anne Jacobsen PA-C - Last Filed: 03/17/22 09:52> Time Spent With Patient Time: Total time spent is greater than 50% in coordination of care (as documented) at patient's floor/unit and/or counseling patient: <Mary Anne Jacobsen PA-C - Last Filed: 03/17/22 09:52> Quality Stroke Does the patient have a stroke diagnosis?: No <Mary Anne Jacobsen PA-C - Last Filed: 03/17/22 09:52> VTE Prior VTE?: No <Mary Anne Jacobsen PA-C - Last Filed: 03/17/22 09:52> VTE Risk Level:: Surgical - low <Mary Anne Jacobsen PA-C - Last Filed: 03/17/22 09:52> VTE Device Contraindication: N/A - Device Ordered <Mary Anne Jacobsen PA-C - Last Filed: 03/17/22 09:52> VTE Drug Contraindication: Treatment Not Indicated <Mary Anne Jacobsen PA-C - Last Filed: 03/17/22 09:52>
[2022-03-17] MEDS: 0.9 % Sodium Chloride Flush 3 ML SYRINGE IVFLUSH ×2 (13:49→21:13)
[2022-03-17] MEDS: diphenhydrAMINE HCL 25 MG CAPSULE PO (21:37)
[2022-03-18 03:42] VITALS: BP 115/68; PULSE 71; RESP 18; TEMP 36.7; O2SAT 98
[2022-03-18] MEDS: Docusate Sodium 100 MG CAPSULE PO ×2 (07:18→21:04)
[2022-03-18 07:30] VITALS: BP 118/68; PULSE 72; RESP 19; TEMP 36.4; O2SAT 95
--- NOTE | 2022-03-18 08:50 | P.PNGS_ITS ---
Subjective Subjective Date of Service: 03/18/22 <Mary Anne Jacobsen PA-C - Last Filed: 03/18/22 08:54> 03/18/22 <Jassi Barney MD - Last Filed: 03/18/22 10:17> Interval history: Reports he occasionally has twinges of abd pain but continues to be overall significantly improved. Continues to tolerate solid diet, move his bowels. Reports they are firm and small. <Mary Anne Jacobsen PA-C - Last Filed: 03/18/22 08:54> Physical Exam Vital Signs: Vital Signs: Last Vital Signs Temp 97.6 F 03/18/22 07:30 Pulse 72 03/18/22 07:30 Resp 19 03/18/22 07:30 BP 118/68 03/18/22 07:30 Pulse Ox 95 03/18/22 07:30 O2 Del Method 03/18/22 07:30 BMI result Body Mass Index 30.4 <Mary Anne Jacobsen PA-C - Last Filed: 03/18/22 08:54> Const: General: comfortable, no acute distress and alert <Mary Anne Jacobsen PA-C - Last Filed: 03/18/22 08:54> Orientation/consciousness: patient oriented x3 <GIANFRANCO Max Last Filed: 03/18/22 08:54> Resp: Effort & Inspection: normal respiratory effort <Mar yAnne Jacobsen PA-C - Last Filed: 03/18/22 08:54> GI: Inspection: No distended <Mary Anne Jacobsen PA-C - Last Filed: 03/18/22 08:54> Palpation (GI): Soft to palpation, nontender, no guarding and not rigid <Mary Anne Jacobsen PA-C - Last Filed: 03/18/22 08:54> Skin: General skin exam: no rashes or lesions noted <GIANFRANCO Max Last Filed: 03/18/22 08:54> Neuro: General: patient oriented x3 <GIANFRANCO Max Last Filed: 03/18/22 08:54> Objective Data Active Medications Acetaminophen (Acetaminophen 325 Mg Tablet) 650 mg PO QID PRN PRN Reason: headache, temp > 101 Last Admin: 03/14/22 03:16 Dose: 650 mg Documented By: GINETTE Diphenhydramine HCl (Diphenhydramine Hcl 25 Mg Capsule) 25 mg PO ONCE [facility] Last Admin: 03/16/22 22:34 Dose: 25 mg Documented By: LUIS EDUARDO Diphenhydramine HCl (Diphenhydramine Hcl 25 Mg Capsule) 25 mg PO BEDTIME PRN PRN Reason: Insomnia Last Admin: 03/17/22 21:37 Dose: 25 mg Documented By: BRIDGET Docusate Sodium (Docusate Sodium 100 Mg Capsule) 100 mg PO BID [facility] Last Admin: 03/18/22 07:18 Dose: 100 mg Documented By: QUE Hydromorphone HCl (Hydromorphone Hcl 0.5 Mg/0.5 Ml Syringe) 0.5 mg IVPUSH Q3H PRN; Protocol PRN Reason: Pain, Severe (Pain Scale 7-10) Last Admin: 03/12/22 21:28 Dose: 0.5 mg Documented By: GINETTE Meropenem/Vaborbactam 4 gm/ (Sodium Chloride) 250 mls @ 83.333 mls/hr IV Q8H [facility] Stop: 03/19/22 16:59 Last Admin: 03/18/22 06:36 Dose: 83.33 mls/hr Documented By: BRIDGET Ondansetron HCl (Ondansetron Hcl 4 Mg/2 Ml Vial) 4 mg IVPUSH QID PRN PRN Reason: Nausea Last Admin: 03/12/22 21:28 Dose: 4 mg Documented By: GINETTE Pharmacy Consult (Consult Rx Perform Med Rec) 1 each MISCELLANE ONCE PRN PRN Reason: Consult order Sodium Chloride (0.9 % Sodium Chloride Flush 3 Ml Syringe) 3 ml IVFLUSH QSHIFT [facility] Last Admin: 03/18/22 07:13 Dose: Not Given Documented By: QUE Non-Admin Reason: IV Running <Mary Anne Jacobsen PA-C - Last Filed: 03/18/22 08:54> Labs CBC & Chem 7: : 03/16/22 05:10 03/11/22 03:13 <Mary Anne Jacobsen PA-C - Last Filed: 03/18/22 08:54> Procedures Date of Service Date of Service: 03/18/22 <Mary Anne Jacobsen PA-C - Last Filed: 03/18/22 08:54> Progress Note: A&P Assessment and plan (1) Colonic diverticular abscess: Status: Acute <Mary Anne Jacobsen PA-C - Last Filed: 03/18/22 08:54> Assessment and Plan: Remains asymptomatic Tolerating food Abdomen soft and benign To complete antibiotics until tomorrow Seen and examined independently - agree with LUCIO Jacobsen <Jassi Barney MD - Last Filed: 03/18/22 10:17> Assessment and Plan: 36 year old male readmitted with diverticulitis with small abscess. Was spiking fevers and repeat CT scan 03/13 showed slight increase in abscess size. Seen by ID started on IV meropenem/vaborbactam, on day 6. He however has had resolution of symptoms and now has a normal WBC count without any fevers >48hrs. Abd exam remains benign with no tenderness or peritoneal signs. To finish IV vabomere course. Therefore remains inpatient for IV abx. Patient comfortable with plan. Plan for discharge tomorrow on PO Augmentin. <RIANNA Max - Last Filed: 03/18/22 08:54> Time Spent With Patient Time: Total time spent is greater than 50% in coordination of care (as documented) at patient's floor/unit and/or counseling patient: <Mary Anne Jacobsen PA-C - Last Filed: 03/18/22 08:54> Quality Stroke Does the patient have a stroke diagnosis?: No <GIANFRANCO Max Last Filed: 03/18/22 08:54> VTE Prior VTE?: No <Mary Anne Jacobsen PA-C - Last Filed: 03/18/22 08:54> VTE Risk Level:: Surgical - low <Mary Anne Jacobsen PA-C - Last Filed: 03/18/22 08:54> VTE Device Contraindication: N/A - Device Ordered <Mary Anne Jacobsen PA-C - Last Filed: 03/18/22 08:54> VTE Drug Contraindication: Treatment Not Indicated <Mary Anne Jacobsen PA-C - Last Filed: 03/18/22 08:54>
[2022-03-18 11:14] VITALS: BP 114/74; PULSE 92; RESP 16; TEMP 36.3; O2SAT 98
[2022-03-18] MEDS: 0.9 % Sodium Chloride Flush 3 ML SYRINGE IVFLUSH ×2 (14:13→21:05)
[2022-03-18 15:27] VITALS: BP 115/71; PULSE 73; RESP 18; TEMP 36.4; O2SAT 98
--- NOTE | 2022-03-18 16:10 | MHC.CM.PN ---
EMR REVIEWED, PER SURGICAL ANTIC D/C HOME TOMORROW 03/19 ON ORAL ABX, FAMILY FOR [facility]
[2022-03-18 19:23] VITALS: BP 107/73; PULSE 85; RESP 20; TEMP 36.6; O2SAT 96
[2022-03-18] MEDS: diphenhydrAMINE HCL 25 MG CAPSULE PO (21:11)
[2022-03-18 23:29] VITALS: BP 112/66; PULSE 68; RESP 19; TEMP 36.1; O2SAT 99
[2022-03-19 03:45] VITALS: BP 113/56; PULSE 68; RESP 18; TEMP 36.2; O2SAT 99
[2022-03-19] MEDS: Docusate Sodium 100 MG CAPSULE PO (07:15)
[2022-03-19 07:37] VITALS: BP 111/74; PULSE 73; RESP 18; TEMP 37.1; O2SAT 95
--- NOTE | 2022-03-19 08:34 | PM.PNGS ---
Subjective Subjective Date of Service: 03/19/22 Interval history: continues to feel well occasional twinges of pain in the left lower quadrant tolerating diet well good BMs Physical Exam Vital Signs: Vital Signs: Last Vital Signs Temp 98.8 F 03/19/22 07:37 Pulse 73 03/19/22 07:37 Resp 18 03/19/22 07:37 BP 111/74 03/19/22 07:37 Pulse Ox 95 03/19/22 07:37 O2 Del Method 03/19/22 07:37 BMI result Body Mass Index 30.4 Const: General: comfortable and no acute distress Resp: Effort & Inspection: normal respiratory effort Cardio: Palpation: normal PMI GI: Palpation (GI): Soft to palpation, not firm, nontender and no guarding Objective Data Active Medications Acetaminophen (Acetaminophen 325 Mg Tablet) 650 mg PO QID PRN PRN Reason: headache, temp > 101 Last Admin: 03/14/22 03:16 Dose: 650 mg Documented By: GINETTE Diphenhydramine HCl (Diphenhydramine Hcl 25 Mg Capsule) 25 mg PO ONCE [facility] Last Admin: 03/16/22 22:34 Dose: 25 mg Documented By: LUIS EDUARDO Diphenhydramine HCl (Diphenhydramine Hcl 25 Mg Capsule) 25 mg PO BEDTIME PRN PRN Reason: Insomnia Last Admin: 03/18/22 21:11 Dose: 25 mg Documented By: GETACHEW Docusate Sodium (Docusate Sodium 100 Mg Capsule) 100 mg PO BID [facility] Last Admin: 03/19/22 07:15 Dose: 100 mg Documented By: QUE Hydromorphone HCl (Hydromorphone Hcl 0.5 Mg/0.5 Ml Syringe) 0.5 mg IVPUSH Q3H PRN; Protocol PRN Reason: Pain, Severe (Pain Scale 7-10) Last Admin: 03/12/22 21:28 Dose: 0.5 mg Documented By: GINETTE Meropenem/Vaborbactam 4 gm/ (Sodium Chloride) 250 mls @ 83.333 mls/hr IV Q8H [facility] Stop: 03/19/22 16:59 Last Admin: 03/19/22 05:57 Dose: 83.33 mls/hr Documented By: GETACHEW Ondansetron HCl (Ondansetron Hcl 4 Mg/2 Ml Vial) 4 mg IVPUSH QID PRN PRN Reason: Nausea Last Admin: 03/12/22 21:28 Dose: 4 mg Documented By: GINETTE Pharmacy Consult (Consult Rx Perform Med Rec) 1 each MISCELLANE ONCE PRN PRN Reason: Consult order Sodium Chloride (0.9 % Sodium Chloride Flush 3 Ml Syringe) 3 ml IVFLUSH QSHIFT [facility] Last Admin: 03/19/22 07:16 Dose: Not Given Documented By: QUE Non-Admin Reason: IV Running Labs CBC & Chem 7: 03/16/22 05:10 03/11/22 03:13 Procedures Date of Service Date of Service: 03/19/22 Progress Note: A&P Assessment and plan (1) Diverticulitis: Status: Acute Assessment and Plan: much improved no fever no abdominal pain or tenderness has completed Vabomere x7 days discussed with Dr. Joann garcia to dc home on Augmentin patient has a follow-up with Dr. Silva next week also set up with GI for elective colonoscopy doing very well Time Spent With Patient Time: Total time spent is greater than 50% in coordination of care (as documented) at patient's floor/unit and/or counseling patient: Quality Stroke Does the patient have a stroke diagnosis?: No VTE Prior VTE?: No VTE Risk Level:: Surgical - low VTE Device Contraindication: N/A - Device Ordered VTE Drug Contraindication: Treatment Not Indicated
--- NOTE | 2022-03-19 08:39 | MHC.CM.PN ---
PT MEDICALLY CLEARED FOR D/C HOME NO SERVICES W/FAMILY FOR TRANSPORT.
--- NOTE | 2022-03-19 14:20 | PM.DS ---
DS: Providers Provider Date of Service: 03/19/22 Date of admission: 03/11/22 02:18 Primary care physician: Ana Boothe NP Attending physician on admission: Quinton Silva Consults: 03/12/22 08:06 Consult to Infectious Diseases Routine Consulting Provider: Carlee David Reason for consultation: recurrent diverticulitis with abscess, antibiotic management Attending physician on discharge: Jassi Barney DS: Diagnosis Discharge Diagnosis (1) Diverticulitis: Status: Acute DS: Summary Hospital Course Hospital Course: BRIEF HPI: Salomon Gunderson is a 36 year old male recently admitted for acute sigmoid diverticulitis with perforation. He was well appearing at that time and conservative treatment was ensued with IV zosyn and bowel rest. He improved with nonoperative measures and was discharged on 03/05/22 on a 10 day course of PO augmentin. He reports he felt well at home until yesterday 03/10/22 when he developed the same LLQ pain. He had been taking the Augmentin. The pain progressively worsened and was associated with low grade fevers. He therefore came back to the ED for evaluation. Repeat CT scan was performed which showed increasing inflammation of the sigmoid colon in the previous area of perforated diverticulitis with a small adjacent fluid collection. He also had a WBC count of 12.8. HOSPITAL COURSE: He was admitted to the surgical service for further treatment of the diverticular abscess.?He was non toxic appearing with a benign abd exam without peritoneal signs. The abscess appeared small and likely unable to be drained. It was therefore recommended to continue nonoperative measures with a longer course of IV antibiotics and bowel rest as long as he continues to improve. His abdominal pain and tenderness improved slightly in the first couple days however he began spiking fevers and his WBC count continued to trend up. An ID consult was obtained and switched his antibiotics to a 7 day course of IV vabomere. A repeat CT scan abd/pelvis was obtained which showed a mild increase in the abscess and surrounding fat stranding from the CT scan on admission. The abscess still remained relatively small in size and unable to be drained. He however continued to improve symptomatically and on his abdominal exam. His abd pain and tenderness eventually resolved. He was moving his bowels without difficulty. His WBC count normalized and he stopped spiking fevers. He was advanced to clear liquids and then low residue diet. On the day of discharge, he was tolerating a solid diet without nausea or vomiting, had no abdominal pain, had good GI function and had a benign abdominal exam. He was afebrile for many days. He completed the 7 day course of IV vabomere and was sent home on a 1 week course of PO Augmentin. He is to follow up in the office in [address] Silva to discuss elective sigmoid resection. He is to follow up with GI for colonoscopy once the inflammatory changes resolve. Status at Discharge Functional status at discharge: independent ambulation Overall status at discharge: patient is back to baseline Time Spent with Patient Time attestation: Total time spent providing and/or coordinating discharge services: Discharge coordination time: Greater than 30 minutes Quality: Safe Use of Opioids Does Pt have an Active Cancer Diagnosis on the Problem List?: No Quality: Stroke Does the patient have a stroke diagnosis?: No Physical Exam Vital Signs: Vital Signs: Last Vital Signs Temp 98.8 F 03/19/22 07:37 Pulse 73 03/19/22 07:37 Resp 18 03/19/22 07:37 BP 111/74 03/19/22 07:37 Pulse Ox 95 03/19/22 07:37 O2 Del Method 03/19/22 07:37 BMI result Body Mass Index 30.4 Const: General: comfortable, no acute distress and alert Orientation/consciousness: patient oriented x3 Resp: Effort & Inspection: normal respiratory effort GI: Inspection: No distended Palpation (GI): Soft to palpation, nontender, no guarding and not rigid Skin: General skin exam: no rashes or lesions noted Neuro: General: patient oriented x3 and moves all extremities Discharge Plan Discharge Anticipated Discharge Date/Time: 03/19/22 09:31 Patient Disposition: Home, Self-Care Discharge Diagnosis: diverticulitis with abscess Referrals: [facility] [place] [facility] [Provider Group] - 1 Month Ana Boothe NP [Primary Care Provider] - 2 days Quinton Silva MD [Physician] - 1 Week Discharge Medications: Continued amoxicillin-pot clavulanate 875-125 mg tablet 1 tab PO BID Qty: 20 0RF Rx Instructions: STARTED 03/05/22 X 10 DAYS Ultra CoQ10 75 mg capsule 75 mg PO DAILY Fish Oil 100-160-1,000 mg capsule 1 cap PO DAILY Discharge Orders: Discharge Order (Routine); Ordered 03/19/22 Ordered By: Jassi Barney Diet: Low residue diet Activity on Discharge: As tolerated Stand Alone Forms: Patient Portal Discharge page, Work/School Release Activity Restrictions/Additional Instructions: Finish your Augmentin that you have at home. Call Your Doctor If: ? ? -Your temperature exceeds 101.5? F? ? ? -You experience excessive pain or swelling ? ? -You have an unexpected reaction to medication ? ? -You experience continued vomiting/nausea Care Plan Goals: Return to baseline health and gradual return to activity. Resolution of current episode of diverticulitis. Health Concerns: Acute diverticulitis with abscess Plan of Treatment: Prolonged IV abx course, transition to PO course Eventual colonoscopy F/u in office with Dr. Silva for eventual sigmoid resection Assessment: Improved Discharge Date/Time: 03/19/22 11:33
--- NOTE | 2022-03-23 10:52 | P.CDIR_ITS ---
Documented by User: Ashlie Bianchi RN 03/23/22 10:53 Retrospective Query Documentation Clarification: PHYSICIAN'S DOCUMENTATION REQUEST Date of Query:? 03/23/22? 1053 Patient Name: Salomon Gunderson Admit Date: 03/11/22 Dear Doctor, A review of the medical record indicates additional documentation may be needed. Please review below and?update the documentation accordingly. Clinical Indicators: Is there a diagnosis that correlates with the findings below.? The patient's infectious clinical indicators include: Risk Factors/Clinical Indicators/Treatments ? ? POA/RESOLVED/TREAT/RULE OUT LABS & VITALS: WBC on 03/13: 15.3 TEMP on 03/12: 101.7 TEMP on 03/14: 101.1 HR on 03/12: 104 Per infectious disease consult on 03/12: received three days IV Zosyn Patient was found to have elevated WBC and ?CT showing increasing sigmoid inflammation at ?the previous region of diverticulitis now with an abscess ? Recognized standard criteria for this condition and other infectious definitions includes: N Sepsis ?? Systemic manifestations of infection, with 2 or more SIRS criteria which include: * Fever > 100.4?F or hypothermia < 96.8?F * Leukocytosis ? WBC > 12,000 or leukopenia, WBC < 4,000, or > 10% bands * Tachycardia- > 90 beats/minute * Tachypnea- RR > 20 breaths/minute or PaCO2 < 32mmHg Source: Merck Manual 2013 ?? Documentation should include the known or suspected organism, and the underlying ? ? infection, such as UTI or pneumonia Severe Sepsis ?? Sepsis with associated acute organ dysfunction, such as renal or respiratory failure ?? Documentation should indicate the association between the sepsis and the organ dysfunction Septic Shock ?? Severe sepsis with associated with circulatory failure, evidenced by hypotension and hypoperfusion Based on the above information and the recognized standard for sepsis, could you please clarify?in the Progress Notes? if this diagnoses is still accurate and reflective of the patient's condition to ensure quality of the medical record. ? * Sepsis is/was present and is a clinical diagnosis based on (please include this additional support in the medical record) * After study (the condition) has been ruled out * Other?(please specify) * Unable to determine? Use of terms such as suspected, likely, concern for, or probable (associated with a specific diagnosis that is being evaluated, monitored, or treated as if it exists) are acceptable and can be coded in the inpatient setting, when documented at the time of discharge. Thank you, Ashlie Bianchi MS, RN, CCRN Extension: [phone] Please use your independent medical judgment in providing your response. THIS QUERY IS PART OF THE PERMANENT MEDICAL RECORD Documented by User: Quinton Silva MD 03/23/22 16:50 Retrospective Query Provider Response: Sepsis (based on temp > 100, WBC > 15, HR > 100)
== END 2022-03-19 11:33 | disposition home or self-care (01) | DRG 392 ==
LOC: HO.ED 03-11 02:19 → HO.EDOVER 03-11 02:37 → HO.S3 03-11 14:25
PROVIDERS: Physician Assistant; Surgery; Admitting Provider Internal Medicine; Emergency Provider Internal Medicine; PCP Nurse Practitioner; Visit Provider Surgery
DX: K57.20 Diverticulitis of large intestine with perforation and abscess without bleeding (principal); Z20.822 Contact with and (suspected) exposure to COVID-19; Z79.899 Other long term (current) drug therapy
CPT/HCPCS: 36415; 74177; 76870; 80048; 80053; 81003; 83605; 83690; 83735; 85007; 85025; 85027; 87040; 87635; 93975; 99285; J1170; J1885; J1956; J2186; J2405; J2543; Q9967

== ENCOUNTER 2022-06-26 10:54 | Day surgery (SDC) | payer OTHER, SELFPAY ==
[2022-06-26 11:08] VITALS: BMI 30.4
[2022-06-26 11:18] VITALS: BP 139/92; PULSE 75; RESP 16; TEMP 36.6; O2SAT 97
--- NOTE | 2022-06-26 13:09 | HO.ANESPROP2 ---
HPI - Anesthesia Eval Consult details Narrative: abnormal finding on CT scan PMFSH Active Problems Active Problems: All Active Problems (Updated 03/27/22 @ 00:03 by Patricia Walton) Sepsis (Acute) Past Medical History Medical History Diverticulitis Family History Family history of problems with anesthesia: No Surgical History History of Problems with Anesthesia: No Social History Social History Household Members: Spouse Housing: House Do you presently have visiting nurse or other home services: No Patient Tobacco Use Status: Never used Tobacco Use of substances other than those prescribed or required for medical reasons: No Advance Directives: No Advance Directives Information Provided: Yes service: No Current occupational status: employed Meds Allergies Allergy/AdvReac Type Severity Reaction Status Date / Time No Known Allergies Allergy Verified 03/24/22 09:51 Active Medications: Current Medications Sodium Biphosphate/Sodium Phosphate (Sodium Phosphate,Denali-Dibasic 133 Ml Enema) 133 ml AR ONCE PRN PRN Reason: Poor Colonoscopy Prep Results Home Medications Medication Instructions Recorded Confirmed Last Taken Type coenzyme Q10 75 mg capsule (Ultra 75 mg PO DAILY 03/02/22 03/11/22 03/10/22 History CoQ10) omega 4-oha-kja-fish oil 100 1 cap PO DAILY 03/02/22 03/11/22 03/10/22 History mg-160 mg-1,000 mg capsule (Fish Oil) Exam Exam Date and Time: June 26, 2022 1309 Height,Weight and Vital Signs: Height 5 ft 8 in Weight 90.718 kg Last Vital Signs Temp 97.8 F 06/26/22 11:18 Pulse 75 06/26/22 11:18 Resp 16 06/26/22 11:18 BP 139/92 H 06/26/22 11:18 Pulse Ox 97 06/26/22 11:18 O2 Del Method 06/26/22 11:18 Airway Mallampati Class: I TM Dist: >3cm Neck ROM: Full Loose/Missing/Broken Teeth: No Heart: rr Lungs: cta Assessment and Plan Assessment Anesthesia Assessment: Anesthesia Plan Discussed and Chart Reviewed Final Anesthetic Review Family History of Problems with Anesthesia: No History of Problems with Anesthesia: No NPO: Yes ASA Class: II Final Preanesthetic Review: No Changes in Pt Med Stat, Meds/Allgs Chart Reviewed, Consent Obtained/Reviewed and Anes Risks/Benef Reviewed Patient Risk: Low Procedure Risk: Low Anesthetic Plan Anesthetic Plan: MAC: Disposition: Standard PACU
[2022-06-26 13:22] VITALS: BP 112/75; PULSE 68; RESP 16; TEMP 36.9; O2SAT 97
--- NOTE | 2022-06-26 13:28 | PM.OP ---
Brief Operative Note Date of Service: 06/26/22 Pre-op diagnosis: Diverticulitis, Abnormal CT of colon Post-op diagnosis: other (Polyps, Diverticulsois) Procedure: Colonoscopy to the cecum and TI with hot snare polypectomy x 2 Surgeon: Isma Dewey Anesthesia: MAC Was an Community Engagement Coordinator used for this Procedure?: No Estimated blood loss (mL): 0 Pathology: other (A. Polyp at 50cm B. Rectal polyp) Condition: stable Disposition: PACU
[2022-06-26 13:37] VITALS: BP 133/96; PULSE 59; RESP 16; TEMP 37.1; O2SAT 97
--- NOTE | 2022-06-27 01:26 | OP_ITS ---
SURGEON: Isma Dewey MD INDICATIONS: The patient presents for evaluation of previous diverticulitis and abnormal CT scan of colon. Full consent has been obtained from him for this, including risks of bleeding and perforation. PREOPERATIVE DIAGNOSIS: POSTOPERATIVE DIAGNOSIS: PROCEDURE PERFORMED: Colonoscopy to the cecum and terminal ileum with hot snare polypectomy x 2.. ESTIMATED BLOOD LOSS: COMPLICATIONS: ANESTHESIA: Monitored anesthesia care. ASSISTANTS: SPECIMENS: PREOPERATIVE DIAGNOSES: Abnormal CT scan of colon and history of diverticulitis. POSTOPERATIVE DIAGNOSES: Abnormal CT scan of colon and history of diverticulitis, small colon polyps, diverticulosis, and internal hemorrhoids. DESCRIPTION OF PROCEDURE: The patient was placed in the left lateral decubitus position. The digital rectal exam revealed no abnormalities. The Olympus video pediatric colonoscope was entered into the rectum and advanced easily to the cecum. Once in the cecum, I did identify normal-appearing cecal pouch with appendiceal orifice and normal-appearing ileocecal valve. The terminal ileum was cannulated and appeared normal. Scope was withdrawn back into the colon. The entire cecum and ileocecal valve appeared normal. Scope was then slowly withdrawn assessing all mucosal surfaces carefully. Preparation was excellent. At 50 cm, was an approximately 8 mm flat, but slightly raised polyp which was removed by hot snare polypectomy and recovered by suction. The polypectomy site appeared clean, without any sign of residual polyp nor bleeding. In the proximal rectum, there was an approximately 6 mm polyp which was removed by hot snare polypectomy and recovered by suction. The polypectomy site appeared clean, without any sign of residual polyp nor bleeding. I did not visualize any other polyps, colitis nor angiodysplasia. There was a moderate amount of sigmoid diverticulosis. There were some edematous folds in the sigmoid colon. There was no sign of any colitis, angiodysplasias nor any other polyps. In the rectum, scope was retroflexed, visualizing internal hemorrhoids, but no other pathology. The rectal mucosa appeared normal. The scope was straightened and withdrawn from the patient. He tolerated the procedure well and was returned to the recovery area in stable condition. IMPRESSION: 1. Colon polyps. 2. Diverticulosis. 3. Internal hemorrhoids. PLAN: The results of the pathology will be checked. I would recommend a repeat colonoscopy at age 45 for further screening. He was advised not to use any aspirin or NSAIDS for one week. He will follow up as needed both with myself and Dr. Silva in regard to the previous history of diverticulitis. He is to continue a high-fiber diet to maintain a good bowel regimen and avoid constipation. This has been discussed with his . MD BULL Akins/TAYLOR / [id number] MTDD
== END 2022-06-26 14:05 | disposition home or self-care (01) ==
PROVIDERS: PCP Nurse Practitioner; Visit Provider Internal Medicine
PROC: 0DJD8ZZ Inspection of Lower Intestinal Tract, Via Natural or Artificial Opening Endoscopic (ICD-10-PCS; CPT 45378; principal; 2022-06-26 12:20)
DX: R93.3 Abnormal findings on diagnostic imaging of other parts of digestive tract (principal); D12.5 Benign neoplasm of sigmoid colon; K62.1 Rectal polyp; K57.30 Diverticulosis of large intestine without perforation or abscess without bleeding; K64.8 Other hemorrhoids; Z87.891 Personal history of nicotine dependence
CPT/HCPCS: 45385; 88305